=== PATIENT | male | born 1940 | race Caucasian/White ===

== ENCOUNTER 2023-05-25 06:31 | Outpatient (OUT) | payer MEDICARE, OTHER, SELFPAY ==
[2023-05-25 06:58] LABS: Basophils Absolute Auto 0.1 10^3/uL (0.0-0.1); Basophils Percent Auto 1.4 % (0.2-2.0); Eosinophils Absolute Auto 0.3 10^3/uL (0.0-0.7); Eosinophils Percent Auto 5.7 % (0.9-7.0); Hematocrit 44.7 % (42.0-54.0); Hemoglobin 14.3 g/dL (14.0-18.0); Immature Granulocytes Abs Auto 0.01 10^3/uL (0.00-0.03); Immature Granulocytes Pct Auto 0.2 % (0.0-0.5); Lymphocytes Absolute Auto 1.6 10^3/uL (1.2-3.8); Lymphocytes Percent Auto 27.5 % (20.5-60.0); Mean Corpuscular Hemoglobin 29.9 pg (25.9-34.0); Mean Corpuscular Volume 93.5 fL (80.0-94.0); Mean Platelet Volume 10.1 fL (9.5-13.5); Monocytes Absolute Auto 0.6 10^3/uL (0.3-0.8); Monocytes Percent Auto 10.1 % (1.7-12.0); Neutrophils Absolute Auto 3.3 10^3/uL (1.4-6.5); Neutrophils Percent Auto 55.1 % (43.0-75.0); Platelet Count 218 10^3/uL (150-450); Red Blood Count 4.78 10^6/uL (4.70-6.10); Red Cell Distribution Width 13.2 % (11.0-15.0); White Blood Count 5.9 10^3/uL (4.0-11.0)
--- NOTE | 2023-05-25 07:30 | NM_ITS ---
Patient Name: MIKE MONROY MR#: [id number] : 1940 Exam Date: 05/25/2023 Ordering Doctor: DR Paul Woodard . RADIOLOGY REPORT PROCEDURE: NM NIMA PERF SPECT REST STR COMPARISON: None. INDICATIONS: SHORTNESS OF BREATH TECHNIQUE: Exam Description: Stress/Rest two day protocol gated SPECT Rest Imagin.2 mCi Tc-99m Cardiolite IV on 05/26/2023 Stress Imaging 25.8 mCi Tc-99m Cardiolite IV on 05/25/2023 Exercise Protocol: 0.4 mg Lexiscan given IV Heart Rate (bpm): Rest: 65 Max: 87 PMHR: 62 Blood Pressure: Rest: 158/82 Max: 164/76 Symptoms: Rest and peak stress ECG findings were abnormal and the exercise portion of the study was abnormal per attending physician Dr. Lind . For more details please see separate cardiac stress test report. FINDINGS: QUALITY OF STUDY: PERFUSION DEFECT: LOCATION: [place]. SIZE: Small (1-2 segments). SEVERITY: Moderate. TYPE: Persistent. WALL MOTION: Moderate hypokinesis: LV SIZE: Enlarged; EDV 120 mL. TID / TCD: None; 0.9 LVEF: Abnormal. Calculated EF 42%. SUMMARY: Myocardial perfusion imaging study has ABNORMAL findings. CONCLUSION: 1. No reversible ischemia 2. Low left ventricular ejection fraction of 42% 3. Borderline left ventricular dilatation with end-diastolic volume of 120 milliliters 4. Abnormal exercise test Dictated by: Madhav Montoya MD on 05/26/2023 at 15:40 Approved by: Madhav Montoya MD on 05/26/2023 at 15:41
[2023-05-25 08:10] LABS: Alanine Aminotransferase 20 U/L (16-63); Albumin Level 3.6 g/dL (3.4-5.0); Alkaline Phosphatase 75 U/L (46-116); Anion Gap 10.3; Aspartate Amino Transferase 20 U/L (15-37); Bilirubin Direct 0.1 mg/dL (0.0-0.2); Bilirubin Total 0.7 mg/dL (0.2-1.0); Carbon Dioxide 32.6 mmol/L (21.0-32.0); Chloride 105 mmol/L (98-107); Chol HDL Ratio 2.5; Cholesterol 185 mg/dL (<=200); Estimated GFR (African America >60 (>=60); Estimated GFR (Non-African Ame >60 (>=60); Globulin 3.7 g/dL; Glucose 92 mg/dL (74-106); HDL Cholesterol 75 mg/dL (40-60); Potassium 3.9 mmol/L (3.5-5.1); Sodium 144 mmol/L (136-145); Total Protein 7.3 g/dL (6.4-8.2); Triglycerides 52 mg/dL (<=150); VLDL CHOLESTEROL 10.4 mg/dL
[2023-05-25] MEDS: REGADENOSON 0.4 MG/5 ML SYRINGE IV (08:35)
--- NOTE | 2023-05-25 12:35 | PM.STRESS ---
Stress Test Stress Test Requesting physician: Paul Woodard Procedure: Lexiscan Cardiolite stress test General Information: Reason for Stress Test: Dyspnea Cardiac History and Risk Factors: Former smoker. History of CABG x3. Resting 12 - Lead Electrocardiogram: Rate & rhythm: Sinus arrhythmia - variable rate from 59 with bursts up to near 150 [place]: Normal T-waves: Inverted T-waves in aVL ST-segments: Normal Stress Test: Protocol: Hank protocol was initiated, but due to inability to ambulate on the treadmill, the exercise component was unable to achieve target heart rate and therefore canceled.? Testing was changed to Lexiscan protocol, with injection of 0.4mg Lexiscan IV push followed by Cardiolite. Blood pressure: Initial: 158/82, Maximum: 164/76 Rate & rhythm: There were frequent PACs and polymorphic PVCs throughout the study. The maximum heart rate was 87, which was 62% of the maximum predicted heart rate 139. ST-segments & T-waves: After injection of Lexiscan, downsloping was seen in all 3 inferior leads. Patient response/symptoms: There were no symptoms similar to the chief complaint. Interpretation: This is an abnormal stress test based on downsloping of the inferior leads after injection of Lexiscan. Frequent atrial and ventricular ectopic beats, with several runs of SVT noted prior to Lexiscan. Asymptomatic during the test. Cardiolite imaging interpretation will be reported separately. Clinical correlation required.?
== END 2023-05-25 06:32 | disposition home or self-care (01) ==
LOC: LAB 06:32
PROVIDERS: PCP Family Medicine; Visit Provider Family Medicine
DX: R06.02 Shortness of breath (principal); Z79.899 Other long term (current) drug therapy; E78.5 Hyperlipidemia, unspecified
CPT/HCPCS: 36415; 78452; 80048; 80061; 80076; 85025; 93017; A9500; J2785

== ENCOUNTER 2023-05-26 10:39 | Outpatient (OUT) | payer MEDICARE, OTHER, SELFPAY ==
--- NOTE | 2023-05-26 12:13 | CA_ITS ---
Patient Name: MIKE MONROY MR#: [id number] : 1940 Exam Date: 05/26/2023 Ordering Doctor: DR Paul Woodard . ECHOCARDIOGRAM REPORT PROCEDURE: CA ECHO DOPPLER COMPLETE INDICATIONS: Shortness of breath COMPARISON: None. DESCRIPTION: COMPLETE ECHOCARDIOGRAM Real-time transthoracic echocardiography with 2D, M-mode, spectral and color flow Doppler performed. QUALITY: Technical quality was good. LEFT VENTRICLE: Normal chamber size. Normal left ventricular wall thickness. LV EF: Global left ventricular systolic function is normal. Calculated left ventricular ejection fraction is 58% DIASTOLIC: Grade 2, moderate diastolic dysfunction. ATRIAL SEPTUM: Not well visualized. LEFT ATRIUM: Moderate dilatation. RIGHT ATRIUM: Moderate dilatation. RIGHT VENTRICLE: Mild dilatation. Normal right ventricular systolic function. TRICUSPID VALVE: Normal mobility and thickness. Mild regurgitation. Mild pulmonary hypertension. RVSP 44mmHg MITRAL VALVE: Moderately thickened with decreased mobility. Mild mitral valve stenosis. Severe mitral annular calcification. Mild to moderate mitral regurgitation. MVA 1.8cm2, PHT 120ms, Gradient 6mmHg, Mean pressure gradient 1.6mmHg. AORTIC VALVE: Moderately calcified aortic valve. Moderately diminished mobility. Doppler velocity suggests mild to moderate aortic valve stenosis. DVI 0.3, KIANA 1.1cm2, Vmax 2.4m/s, Mean gradient 13mmHg. Mild aortic regurgitation. AORTIC ROOT: Normal diameter and appearance. PULMONIC VALVE: Grossly normal. No stenosis. No regurgitation. PERICARDIUM: No evidence of pericardial effusion. IVC: Moderate dilatation. Measuring 2.4cm. Collapses with inspiration. CONCLUSION: 1. Global left ventricular systolic function is normal; visually estimated ejection fraction is 55 to 60% 2. The right ventricle is mildly dilated with normal systolic function 3. Biatrial enlargement 4. Grade 2, moderate diastolic dysfunction 5. Mild tricuspid regurgitation; mildly elevated right ventricular systolic pressure 6. Mild mitral stenosis; mild to moderate mitral regurgitation 7. Mild to moderate aortic valve stenosis Adult Echocardiography Procedure Report Left Ventricle LVEDD (3.7 - 5.6 cm): 5.14 cm LVESD (2.2 - 4.0 cm): 4.22 cm LVIVS thickness (0.6 - 1.2 cm): 1.10 cm LVPW thickness (0.5 - 1.0 cm): 1.03 cm e': 0.07 m/s E - e': 13.76 LVOT Max Gradient: 2.35 mm[Hg] LVOT Area (cm2): 0.77 m/s Peak Velocity (LVOT): 0.77 m/s Mean Velocity (LVOT): 0.55 m/s LVOT Diameter 1.91 cm Left Ventricular Ejection Fraction: 57.94 % Left Atrium LA Volume Index (2D A2C): 48.18 ml/m2 Left Atrium Systolic Dimension: 3.96 cm Mitral Valve MV E to A Ratio: 0.91, 0.83 Mitral Valve A-Wave Peak Velocity: 1.13 m/s Mitral Valve E-Wave Peak Velocity: 0.98 m/s Right Ventricle RV Internal Diastolic Dimension: 4.60 cm Aorta AO Root Diam: 3.15 cm Aortic Valve AoV Area (Peak Toi): 1.02 cm2, 0.93 cm2 AoV Area (VTI): 1.21 cm2, 1.11 cm2 Deceleration Treasure: 2.04 m/s2 Pressure Half-Time: 559.00 ms Peak Velocity(Antegrade Flow): 2.36 m/s, 2.19 m/s, 1.93 m/s Peak Gradient(Antegrade Flow): 22.30 mm[Hg], 19.23 mm[Hg], 14.97 mm[Hg] Mean Velocity(Antegrade Flow): 1.70 m/s, 1.49 m/s, 1.33 m/s Mean Gradient(Antegrade Flow): 12.72 mm[Hg], 10.29 mm[Hg], 7.86 mm[Hg] Velocity Time Integral: 54.58 cm, 54.47 cm, 42.22 cm Tricuspid Valve Peak Velocity (Regurgitant Flow): 2.73 m/s, 3.00 m/s Pulmonic Valve Mean Gradient: 0.94 mm[Hg], 1.23 mm[Hg] Mean Velocity: 0.47 m/s, 0.51 m/s Peak Velocity: 0.70 m/s Peak Gradient: 1.53 mm[Hg], 2.43 mm[Hg] Right Atrium Right Atrium Systolic Pressure: 100.86 ml, 100.86 ml Dictated by: Heraclio Jha M.D. on 05/27/2023 at 15:42 Approved by: Heraclio Jha M.D. on 05/27/2023 at 15:48
== END 2023-05-26 10:40 | disposition home or self-care (01) ==
LOC: NM 10:39
PROVIDERS: PCP Family Medicine; Visit Provider Family Medicine
DX: R06.02 Shortness of breath (principal); I08.3 Combined rheumatic disorders of mitral, aortic and tricuspid valves
CPT/HCPCS: 93306

== ENCOUNTER 2023-07-09 13:30 | Emergency (ER) | payer MEDICARE, OTHER, SELFPAY ==
[2023-07-09] VITALS (55 sets, daily range): BP systolic 97–155; BP diastolic 57–110; PULSE 101–148; RESP 18–27; TEMP 36.8; O2SAT 96–98; BMI 22.3
--- NOTE | 2023-07-09 | CT_ITS ---
The [address] [address] Patient Name: MIKE MONROY MRN: [id number] date: 1940 Sex: M Assigned Patient Location: ER Current Patient Location: ED.MAIN Accession/Order Number: [id number] Exam Date: 07/09/2023 13:38 Report Date: 07/09/2023 14:14 At the request of: STEVE URBINA Procedure: CT stroke head/brain wo con CT BRAIN WITHOUT CONTRAST HISTORY: Stroke protocol. COMPARISON: None. TECHNIQUE: Axial CT images were acquired from the skull base to the vertex without the use of intravenous contrast. Dose reduction techniques were achieved by using automated exposure control and/or adjustment of mA and/or kV according to patient size and/or use of iterative reconstruction technique FINDINGS: There are periventricular white matter hypodensities. There is no evidence for intracranial hemorrhage, mass effect, or hydrocephalus. No extraaxial collection or midline shift is identified. The visualized paranasal sinuses are unopacified. CT/CT stroke head/brain wo con IMPRESSION: 1. No acute brain pathology. 2. Periventricular white matter hypodensities, likely the sequela of chronic small vessel ischemia. CRITICAL RESULTS REPORTING: These results were called by myself and discussed with Steve Urbina at the time of the interpretation 07/09/2023 2:13 PM EST. Electronically authenticated by: ISADORA YARBROUGH Date: 07/09/2023 14:14
--- NOTE | 2023-07-09 13:35 | ECG_ITS ---
[facility] Test Date: 2023-07-09 Pat Name: MIKE MONROY Department: Room: - Gender: Male [employer]: : 1940 Requested By: [id number] Order Number: [id number] Reading MD: FRANCES HOPKINS Measurements Intervals [place] Rate: 141 P: -[id number] AR: -[id number] QRS: 79 QRSD: 90 T: 270 QT: 298 QTc: 380 Interpretive Statements 99606 Atrial fibrillation with rapid ventricular response with aberrant conduction, or ventricular premature complexes [id number] depression, probably digitalis effect [address] & Twave abnormality, probably digitalis effect 9150 abnormal ECG Electronically Signed On 07-11-2023 17:31:06 EST by FRANCES HOPKINS
--- OUTSIDE RECORDS SUMMARY | 2023-07-09 13:46 | XMS_ITS | CCD ---
Author Name Unknown Address [address] [place] [address] Organization [facility] Care Team Providers Care Enterprise Analyst Name Role Phone LONDON BLAND Unavailable Unavailable PAUL ESQUEDA Unavailable Unavailphilipp e Shayne ZAMBRANO Unavailable Unavailable Shayne ZAMBRANO Unavailable Unavailable London Bland Attending Unavailable Paul Esqueda Primary Care Unavailable YIN, DR PAUL Jauregui Attending Unavailable YIN, DR PAUL Jauregui Consulting Unavailable YIN, DR PAUL Jauregui Primary Care Unavailable DR PAUL ESQUEDA Admitting Unavailable Paul Esqueda MD Primary Care Provider PONCHO ROJO Attending Unavailable PAUL ESQUEDA Primary Care Unavailphilipp e Medications Current Medications Medication Drug Class(es) Dates Sig (Normalized) Sig (Original) aspirin 81 mg delayed release oral tablet (1 source) Platelet Aggregation Inhibitor, Nonsteroidal Anti-inflammatory Drug Start: 12-26-2017 take 1 tablet by mouth once daily aspirin 81 mg EC tablet Take 1 tablet (81 mg) by mouth once daily. 0 12/26/2017 Active atorvastatin 40 mg oral tablet (1 source) HMG-CoA Reductase Inhibitor take 1 tablet by mouth once daily at bedtime atorvastatin (Lipitor) 40 mg tablet Take 1 tablet (40 mg) by mouth once daily at bedtime. 0 Active losartan potassium 25 mg oral tablet (1 source) Angiotensin 2 Receptor Vidal Start: 06-15-2023 End: 06-14-2024 take 1 tablet by mouth once daily losartan (Cozaar) 25 mg tablet Indications: S/P coronary artery bypass graft x 3 , Mixed hyperlipidemia Take 1 tablet (25 mg) by mouth once daily. 30 tablet 11 06/15/2023 06/14/2024 Active Problems Active Problems Problem Classification Problem Date Documented Date Episodic/Chronic Cardiac dysrhythmias (1 source) Cardiac dysrhythmias Onset: 01-18-2018 Chronic kidney disease (2 sources) Chronic kidney disease Onset: 01-18-2018 Chronic obstructive pulmonary disease and bronchiectasis (2 sources) Chronic obstructive lung disease; Translations: [Chronic obstructive pulmonary disease, unspecified] Onset: 06-15-2023 06-15-2023 Chronic Chronic obstructive pulmonary disease and bronchiectasis (1 source) Chronic obstructive pulmonary disease and bronchiectasis Onset: 01-18-2018 Coronary atherosclerosis and other heart disease (5 sources) Atherosclerotic heart disease of [place] coronary artery without angina pectoris; Translations: [Multi vessel coronary artery disease] Onset: 01-18-2018 06-15-2023 Chronic Coronary atherosclerosis and other heart disease (2 sources) Presence of aortocoronary bypass graft; Translations: [Presence of aortocoronary bypass graft] Onset: 06-15-2023 Episodic Coronary atherosclerosis and other heart disease (1 source) Coronary atherosclerosis and other heart disease Onset: 01-18-2018 Disorders of lipid metabolism (5 sources) Hyperlipidemia, unspecified; Translations: [Mixed hyperlipidemia] Onset: 10-29-2020 06-15-2023 Chronic Essential hypertension (4 sources) Essential (primary) hypertension; Translations: [ESSENTIAL PRIMARY HYPERTENSION] Onset: 10-21-2020 Chronic Heart valve disorders (4 sources) Aortic stenosis, non-rheumatic ; Translations: [Nonrheumatic aortic (valve) stenosis] Onset: 06-15-2023 06-15-2023 Chronic Other aftercare (1 source) Other fdc (current) drug therapy; Translations: [OTH NUT FEEDER CURRENT DRUG THERAPY] Onset: 10-29-2020 Episodic Other aftercare (1 source) Treatment changed; Translations: [Other terminal clerk (current) drug therapy] Onset: 06-15-2023 06-15-2023 Episodic Other lower respiratory disease (2 sources) Dyspnea; Translations: [Shortness of breath] Onset: 06-15-2023 06-15-2023 Episodic Other screening for suspected conditions (not mental disorders or infectious disease) (5 sources) Encounter for screening for malignant neoplasm of prostate; Translations: [Cardiovascular stress test abnormal] Onset: 10-29-2020 06-15-2023 Episodic Pulmonary heart disease (2 sources) Pulmonary hypertension, unspecified; Translations: [Other chronic pulmonary heart diseases] Onset: 06-15-2023 06-15-2023 Chronic Residual codes; unclassified (2 sources) Body mass index 20-24 - normal; Translations: [Body mass index (BMI) 21.0-21.9, adult] Onset: 06-15-2023 06-15-2023 Episodic Screening and history of mental health and substance abuse codes (2 sources) Ex-smoker; Translations: [Personal history of nicotine dependence] Onset: 06-15-2023 06-15-2023 Episodic Unclassified (2 sources) Athscl heart disease of [place] coronary artery w/o ang pctrs / I25.10(ICD-9) Onset: 01-18-2018 Unclassified (1 source) Other nonrheumatic aortic valve disorders / I35.8(ICD-9) Onset: 01-18-2018 Unclassified (1 source) Other nonrheumatic mitral valve disorders / I34.8(ICD-9) Onset: 01-18-2018 Unclassified (1 source) Overweight / E66.3(ICD-9) Onset: 01-18-2018 Unclassified (1 source) Presence of aortocoronary bypass graft / Z95.1(ICD-9) Onset: 01-18-2018 Unclassified (1 source) Personal history of nicotine dependence / Z87.891(ICD-9) Onset: 01-18-2018 Unclassified (1 source) Unknown / UNK(Unknown) Onset: 03-08-2018 Past or Other Problems Problem Classification Problem Date Documented Da te Episodic/Chronic Unclassified (1 source) Onset: 06-15-2023 06-15-2023 Results Test Name Value Interpretation Reference Range Facility ECG 12 Leadon 06-15-2023 Normal sinus rhythm with inferior ST-T changes [facility] Work Phone: [facility] Work Phone: Coding Summary.on 01-05-2022 Coding Summary. CD:[id number] Gh0b Ww+PGhlYWQ+YO0LZXLpO42tg UZokQ9MY8uPTL3JMNFAZQDAN H1UQX8lnQE7SCmuD1OvedZp VevpjVCnUQ88PXx6QGD6eIqm TXrrbF6geDLhL4k8ApXaFY52 aC06YQfeNVSzHcE7GkTncxav bWFy A7oyRlCrmNEzWws+PHRhYmxl IHdpZHRoPScxMDAlJyBzdHls DH1hKd3pOXTrMCIeiLkpoCEr OiBj k3amQNKlTZaxVO2usThdO9Lj yTN9WRRkm4q8Fo27uTD+PHRk TBD0dFunNJgng282YmCjp2kh IDM3 xOEvYKjzCFX3H75od2M6VYSa QIWrZAL7dKX2yY1dkHwktwgn W3FeeNOpLbX6UOX1tHTftE1i bGln kmnhgY9uFad+A89XHK6CAJGS PN1ZCng4P2ErUuvkoOZ+PC90 WHAmDN82lDMneEVdg1atsVz3 JzEw UZFgPFL9bXdbDItki3VkPJSn E17kdKSgp9O6WFXuxPqzxIIk JpApfKA1xF0zQAfcfbvda8ir dzsn Jfwxe3dmui87qM97U20wYUed XHVkRXT0RXOmVALunMqdic8u dF7kBa0+FYsem6gvr6eqvBr6 IjIw GAPmknSckDilHYJ4d9PxLn21 J7QzxQfsq0UjVxv7vr57iRNu u7U2gKX1UTtcDMFptH5pRCrs ZnQ6 IQVdJeAbyW84uBAeCVttLz4x eFjljFlvBX7mRBSenkuoAOZd kP0bSWKqsOFcvYepUO5sOSPb bjtm a777TeKqTVB4OHSpoPWcI3Qk vX4tQbMrNBZcSKAuF6OrmJIv OIyfF376EIvlZpH7RUArtpNx Y2Fs TAAusMgwKxI2m7I0Ew7Di3Wo bkdxZEQ1UJzyUDI9CtN8YoWc FfM7G0BfPqz6HVQkuJehGV3j J3Bh GKOysejqenjvrHZ2NDVlPJMk lR03tTLlQYxdGs2xe6I9k195 NAYbQPSvdS42Rj4gcCduZVBv dCBU jI8avsxya1quovbtYrDnYTBy GRx4JUf9MIMhpXjiPyXqIGL4 HiA2HBM4pMVweO4xoCzxdpaf dG9w Oyc+A51upG4fWXO9CIN9skox HDFvkbYnEV50AF94K4MeNzso dGFibGU+EDLtqfXmyLtfOQ3x YmFj n7drj2AzHSymH8CnDPNbDYpd Zsm7RHWjPWQ1aBZ2xV4vBROu UUrcm8X3wAH7Z7GbkmDpzp5x b2xs IZCyKPvhF85bzELbw0T7HEDi gSL8AGTjyFsdAmWyoZ69Fmf+ MKWvoZtjq5BqPabmr3pls3lq dGg9 OhEeODDtolLriXkaDJW2w5Da Eo25F12iXPplNKUwGNTqTFRt YTBivWpjye3qsR8vHs3+PGNv bCB3 dOZ0lU7rQWFfItD2WQdlP078 JsAckXXaZyzhp4cgj3iteTt8 LfVzGHNuaoRuqEhgFSM8m6Gi Lz48 J00fRKnvZHOfDDEjZNFaEJPv fVysmf1lfG9sVh1+TS9gp9ao oh91fY17oWD+JIBjGZI5iMbo PSdw TBKouQ8fSQpzZbO2FXZkWhZv aM48dHUsZArmXy3itUvrtRyi LA2jRREsbsepr913LqMmg5zn IDEw gJZrRByrAAT7P28yd8C5NDPl XVScKLO4hVP3kO3szVeqnzvn bGVmdDsgdmVydGljYWwtYWxp Z246 IHRvcDsnPlBhdGllbnQgTmFt BUk0N4TiFuc3LTFcwIfsDQ7g aNZaUCzpBb8teXmfpExpGT7w NTBp gqsrp068LiUid2tcHTVybNBq TRdiKPB4R65yv9V1IWFpSQLg NIR6sKG6pC4qaSsibdgkbGUg dDsg xqJssIkhDEkgYPysN014SLDi hIjdLyHgmeIbLXXqeVO8WZ50 IW10nYHqk2M6hSB2E3TgEASb bmct dvmqvFN7VFOnKOPoyZ75Qe6v nCzaTi0lXDHdJOY9HXBlhZTl Y9KsqF6vKmPzSGFzMSUuW7Xg eHQt AIlcM589TFngJnM5QGKqyrZt Y5TuGULdyDufNtJ5w4Q3Ju3L C4L1WX46DO80rSRiz4H1uFD7 J3Bh ZRElpebxmpbvjDE6CLPkOXGg aG68Hb5etLgiKg8uRYYuAQX7 GGOmvLDpP6XzsZ0aBiFhHFEo MDAw M1IzzTDoPLdpQ433LGjpUuQ2 FWKajvXmD2PpDUVctSakCtA1 q9S8Vj0KADm9CN80GE29gOLv c3R5 gHA7A8ShMJCdogldjkzoqQP0 LORsSGLpnC93Nn2xgVniPf7l YLIuVGX8JWXwhYYvA5BocQ4j OiAj CZQeXPZjA7LjuFWvQVeqY515 HHrbCgZ2IVHdxlQyO8OtSJKt lTkgNyP5t2J5Yp9WTCSpNU89 IFR5 xGF7GQ57SH59Z4AuMwmloEVf bGU+PHRhYmxlIHdpZHRoPScx NOYsBeBlwVopDZ6lTd6zUZIw LWNv jRnwgPSdHcWui5rdNEIjVLsn SZ7tnProZ4YajDF6OCVmf6x3 Bl29M25gE8UgzSQ+PGNvbCB3 aWR0 oL2iHwEfPpG9SKcmE079QtJn oPOzYsfex1far1jzeTp6XsE9 KLXkpjJjeOkyDDY1r3TdBj72 Y29s IHdpZHRoPSIxNSUiIHZhbGln gu2riV8hGh3+NNYktYR4jSV9 uU6eUeUgUvX3EPgfV544JoTb cCIv Xigxm4qvb9iyoZe0StJiYJSp zhZhkKyhONS7s6MsIz28Z1Is xDggw4LsUjt8bc70wKEcy8M1 bGU9 T2FmQIBlqfveyUAqsCluCK3v MCTjdxxjKPStgW9bDBRmX2s1 NsYmUvF2JYllM8BdsjH0DDCu cHQg JIsjGZQ9D67wg2T3AEQuUJUc OFR6gCH4oI5zhGujwdyatVLl iLskbkOprDejWDjsEDiiJ244 IHRv tGphLSIewE6bNGOhgYQqlPfo LF9hLNJgrdwqMy0EGKwZVgds SkFNRVMgTDwvdGQ+PHRkIHN0 eWxl UJssXSRarZ6iTUYoX4e2EdEw BfR4SLruU2WvCRTdflsyRj38 gV5rMxHoVnI2UCvzL7IoprV7 IDEw iUPuMPfgOCP2R36ij2Z4SNEa OYIwKKP5gUK4zT1xkYidwfqt bGVmdDsgdmVydGljYWwtYWxp Z246 JGKbgVrgUxW1PwJ4KrN9ELW1 T8IrEps0KEIomIhiMB4mgWPb WFyrTw7iqHdliJamCR1yACEf bjtw RYSohL5tXCSfgIAuwXxuTY7p DQSdtcomb478WkCsDLD3UNKo sHElD4DhcK2xWmLvRKCcPXWa O3Rl kBPkLAscX711JBrpPyT8SFIf ckBuO8XpDIDzeEpcPeX5h5A5 Fn57LTGAAKAfgbgjrLQ+PHRk IHN0 xNljQTxyQLUfdN9fRPXkN8w6 YrBwShQ4OJnvB3SvMRDlwrha Vk48gY0tGqGjUwB1SQmdR3La bnQ6 JOGsoTJbPWorMDW1P54yp5M2 EFXbPKJmKZC5yIB5dA8wnPoc bjogbGVmdDsgdmVydGljYWwt YWxp K638VEGblSwvYh0riIR5P4Ib Pnu2KYRgmCipGN8yyWWuWTnm Fa8itLxdhOejBW1vHMJyqqgz YWRk vC7qGVEecIBsySabXA6bZSRh merai964JuIqXBQ6QWUszPHb C3UfzO7eFlCnLQVyAJKqH8Qi eHQt MTumL572RKeiHgI3WSGyjuQq Z0DwOUIjxSvrYrG2r6Z0Yl5Y qDMpZ5XoQ6e5D3DyOykinHC+ PC90 NBRlWT43eZTecRUkz8ztvUg8 GuVtNJKlYLJ3iTrsURdyb3Ey EBKcV81vmHEfs2T7HHHlgLrb cHNl TqLvtGA7jV1zDPyasbzxj6fr jokcVpecg3clei61mV26M20v IHdpZHRoPSIzMCUiIHZhbGln bj0i mM9wXo0+PRDgaLJ3cFM6kO6f NmWeTqH0IWwlC229NqWwcQVq Ihazb8kto6xrhRx9WuArAOFv dmFs uSeeTCI8c2WfEz58I69eXKan QPTnNAFpVIKuIZNfoTyopg7s dB3cHg1+KH1qx4bapw26jM13 dHI+ FSFaSDD0cTfiTYrmNSCoqO2k NSijRmK2RQRkFfQzpE74cJYf JEwnFp2ahMgjuStvNB5oCIQw bjtm i062FuHxc0yrAASxwFBkFXrb LBY0C39kl8X9ZIAbPZLeLOY4 nQL9qS7vxFnmwogxuOKbbMvp dmVy eYnfEGohAZbuT843OHDxsZwr EbPreSShY8ltplRLRC1kXuht dGQ+UMHpWHT5tKrsFPpqXTAi aW5n SAJdV4k1OrHpUmK3DDfpH2Ea naV3NYMhbDLsMCTfpFHGtV1j hdinp5ifvuyeMcDbIJZuTUt5 ZXh0 ATNiePcgUnJwZTF9HfG1CSA9 pRObvT0kqQgfefcmyO9uIqm+ RklOOjwvdGQ+VMHeSHI1dIvg PSdw YGBjbH5zUKPqB8k3AbBcQkE3 CInpX3CakjZ9LKSgaSSaDGFd xGIPdF9zbtzwc3byukouLyIp MDAw GOf5IVz7VYTzeQzoOxDgMID6 OdD4WHH1bWPuaK6jmCxgtmfq pU3tYot+TVJOOjwvdGQ+PHRk IHN0 mMsdICvuMDEyuD4vHIUsU2t8 FlPfQgY4SWmyI4ObetR1HTVp gYSpRDExfYCXoJ6frdtpa8yb cjog XyDgLULhRLk0KGe1CMNpiSml BhQpCWL5SeM8SEA5lVNurM7j nCpxwiffgZ9aNkx+KNO3TNG5 PC90 MS03B3ZjChiadJZocCM+PHRh YmxlIHdpZHRoPScxMDAlJyBz bYmkBC0uCr4lCQZfHTLhiJsi cHNl OiBj (more content not included)... Normal [facility] Transfer Documentson 022 Transfer Documents [id number] Normal [facility] XR Chest Single Viewon 12-29 XR Chest Single View Exam Date/Time: 12/28/2021 17:48 EDT Reason for Exam: Chest pain Report IMPRESSION: NO ACTIVE PULMONARY DISEASE. CLINICAL HISTORY: Chest pain possible stroke COMPARISON: NONE. FINDINGS: AP upright portable chest shows normal-sized heart and evidence of coronary artery bypass surgery. There is no pneumonic infiltrates or consolidation. FINAL REPORT Dictated: 12/29/2021 6:45 am Jori Robbins M.D. Signed (Electronic Signature): 12/29/2021 6:45 am Signed by: Jori Robbins M.D. Transcribed by: FADI Technologist: BRYON Normal [facility] Auto Diffon 12-28-2021 Basophils/100 WBC (Bld) 0.8 % Normal 0.0-2.0 [facility] Comment on above: Order Comment: Order Added by Discern Expert. Performed By: #### 2 452458, 6618036, 45416087, 67438364, 05374178, 5139510, 4218956, 61669872 ####[facility] [address] [place] [address] Basophils/Leukocyt es Auto (Bld) [Pure # fraction] 0.1 E9/L Normal 0.0-0.2 [facility] Comment on above: Order Comment: Order Added by Discern Expert. Performed By: #### 2 911953, 0693916, 52844883, 35013838, 68457535, 1917147, 9474803, 91823796 ####[facility] [address] [place] [address] Eosinophils/100 WBC (Bld) 4.3 % Normal 0.0-8.0 [facility] Comment on above: Order Comment: Order Added by Discern Expert. Performed By: #### 2 448189, 8242785, 68471426, 76016265, 84011133, 6855963, 5861057, 56791674 ####[facility] [address] [place] [address] Eosinophils/Leukoc ytes Auto (Bld) [Pure # fraction] 0.3 E9/L Normal 0.0-0.5 [facility] Comment on above: Order Comment: Order Added by Discern Expert. Performed By: #### 2 673539, 9148632, 15699205, 16834776, 59378756, 7362819, 1113300, 83592445 ####[address] [place] [address] Lymphocytes/100 WBC (Bld) 22.2 % Normal 14.0-50.0 [facility] Comment on above: Order Comment: Order Added by Discern Expert. Performed By: #### 2 685795, 1875824, 98560759, 26196879, 03452795, 4623704, 4188084, 52253130 ####[address] [place] [address] Lymphocytes/Leukoc ytes Auto (Bld) [Pure # fraction] 1.3 E9/L Normal 1.0-4.0 [facility] Comment on above: Order Comment: Order Added by Discern Expert. Performed By: #### 2 716906, 9734453, 50908296, 26740885, 18498208, 4822226, 7072723, 38738279 ####[facility] [address] [place] [address] Monocytes/100 WBC (Bld) 8.6 % Normal 4.0-14.0 [facility] Comment on above: Order Comment: Order Added by Discern Expert. Performed By: #### 2 201825, 5186907, 40215887, 50577085, 80594940, 6244588, 3254523, 23628008 ####[address] [place] [address] Monocytes/Leukocyt es Auto (Bld) [Pure # fraction] 0.5 E9/L Normal 0.2-1.0 [facility] Comment on above: Order Comment: Order Added by Discern Expert. Performed By: #### 2 348917, 9733793, 10631093, 10717095, 47757107, 7140985, 6999293, 28462679 ####[facility] [address] [place] [address] Neutrophils/100 WBC (Bld) 64.1 % Normal 36.0-75.0 [facility] Comment on above: Order Comment: Order Added by Discern Expert. Performed By: #### 2 876332, 4269520, 02150629, 06289391, 09498428, 5664255, 9877237, 32162182 ####[address] [place] [address] Neutrophils/Leukoc ytes Auto (Bld) [Pure # fraction] 3.9 E9/L Normal 2.0-7.5 [facility] Comment on above: Order Comment: Order Added by Discern Expert. Performed By: #### 2 775989, 8905810, 35499728, 23095695, 56910825, 5502279, 9940641, 23456316 ####[address] [place] [address] BMPon 12-28-2021 Calcium [Mass/Vol] 9.3 mg/dL Normal 8.9-11.1 [facility] Comment on above: Performed By: #### 2 132466, 1011477, 01007740, 49346069, 62898380, 4710678, 7889626, 06432240 ####[address] [place] [address] Creatinine [Mass/Vol] 0.8 mg/dL Normal 0.5-1.3 [facility] Comment on above: Performed By: #### 2 293075, 7210111, 19110892, 70178734, 19535667, 0742551, 3217148, 55331263 ####[facility] [address] [place] [address] Urea nitrogen [Mass/Vol] 24 mg/dL High 5-21 [facility] Comment on above: Performed By: #### 2 358217, 6559913, 29354024, 73050297, 08600280, 2244690, 7342451, 36971395 ####[facility] [address] [place] [address] Urea nitrogen/Creatinin e [Mass ratio] 30 No Units High 10-20 [facility] Comment on above: Performed By: #### 2 151153, 5089746, 95757906, 73302391, 21288277, 1588298, 9665183, 83890826 ####[facility] [address] [place] [address] Anion gap [Moles/Vol] 9 mmol/L Normal 6-16 [facility] Comment on above: Performed By: #### 2 439443, 1639090, 75116897, 62680831, 21433372, 6565964, 8638750, 74570883 ####[facility] [address] [place] [address] Chloride [Moles/Vol] 103 mmol/L Normal 101-111 [facility] Comment on above: Performed By: #### 2 134466, 9447612, 31635548, 07862308, 90827383, 1819230, 4473110, 73766380 ####[facility] [address] [place] [address] CO2 [Moles/Vol] 28 mmol/L Normal 21-31 [facility] Comment on above: Performed By: #### 2 715435, 6440381, 58605910, 03646571, 00676297, 0977233, 6483339, 59075087 ####[facility] [address] [place] [address] Glucose [Mass/Vol] 103 mg/dL Normal 55-199 [facility] Comment on above: Result Comment: If t his glucose result represents a fasting glucose, interpretation should refer to the following reference range: 55-99 mg/dL Performed By: #### 2 435482, 5514590, 70077202, 31947258, 32254657, 0765959, 7582301, 11740803 ####[facility] [address] [place] [address] Potassium [Moles/Vol] 4.1 mmol/L Normal 3.5-5.3 [facility] Comment on above: Performed By: #### 2 742339, 5118002, 76417048, 83973420, 91723797, 4266876, 4797584, 68210808 ####[facility] [address] [place] [address] Sodium [Moles/Vol] 136 mmol/L Normal 135-145 [facility] Comment on above: Performed By: #### 2 964110, 7861670, 46413244, 50607094, 08230059, 4000984, 5219983, 26210185 ####[facility] [address] [place] [address] CBC w/ Auto Diffon 2 Erythrocyte distribution width (RBC) [Ratio] 14.2 % Normal 10.9-14.2 [facility] Comment on above: Performed By: #### 2 228936, 2214655, 41141468, 14727024, 91755765, 2410494, 3488122, 02596886 ####[facility] [address] [place] [address] Hematocrit (Bld) [Volume fraction] 40.2 % Normal 37.7-49.0 [facility] Comment on above: Performed By: #### 2 283296, 1697338, 40212003, 55679516, 01665175, 9035872, 7274125, 13779734 ####[facility] [address] [place] [address] Hemoglobin (Bld) [Mass/Vol] 13.9 g/dL Normal 13.5-17.5 [facility] Comment on above: Performed By: #### 2 872633, 0944509, 26553726, 75916084, 13583134, 8970139, 8854408, 81624736 ####[address] [place] [address] MCH (RBC) [Entitic mass] 31.2 pg Normal 27.0-34.0 [facility] Comment on above: Performed By: #### 2 534125, 1363137, 24758046, 34364328, 60166756, 4967273, 5279564, 40213538 ####[address] [place] [address] MCHC (RBC) [Mass/Vol] 34.5 g/dL Normal 31.4-36.0 [facility] Comment on above: Performed By: #### 2 043293, 6828788, 96127413, 19306295, 62677441, 4648798, 9837003, 36150420 ####[address] [address] MCV (RBC) [Entitic vol] 90.4 fL Normal 80.0-100.0 [facility] Comment on above: Performed By: #### 2 963065, 2104058, 44029043, 94588671, 29969384, 6961547, 8198799, 18120253 ####[address] [address] Platelet mean volume (Bld) [Entitic vol] 7.7 fL Normal 6.4-10.8 [facility] Comment on above: Performed By: #### 2 566243, 3102751, 43991104, 91653748, 14016660, 1192187, 9930242, 07217898 ####[address] [address] Platelets (Bld) [#/Vol] 264.0 E9/L Normal 150.0-500.0 [facility] Comment on above: Performed By: #### 2 463082, 8073598, 69748537, 58800965, 38933136, 6794958, 6133505, 89582160 ####[facility] [address] [place] [address] RBC (Bld) [#/Vol] 4.4 E12/L Normal 4.3-5.9 [facility] Comment on above: Performed By: #### 2 715563, 7714856, 59821459, 33264009, 47054145, 4719893, 3820264, 02338668 ####[facility] [address] [place] [address] WBC corrected for nucl RBC Auto (Bld) [#/Vol] 6.1 E9/L Normal 4.0-11.0 [facility] Comment on above: Performed By: #### 2 [id number], [id number], [id number], [id number], [id number], [id number], [id number], [id number] ####[facility] [address] [place] [address] CRPon 12-28-2021 CRP [Mass/Vol] 0.7 mg/dL Normal <=1.9 [facility] Comment on above: Performed By: #### 2 [id number], [id number], [id number], [id number], [id number], [id number], [id number], [id number] ####[facility] [address] [place] [address] CT Head or Brain w/o Contras ton 12-28-2021 CT Head or Brain w/o Contrast Exam Date/Time: 12/28/2021 17:05 EDT Reason for Exam: Transient ischemic attack (TIA) Report IMPRESSION: No acute intracranial process. COMMUNICATION: Communicated by statrad radiologist Dr. Zuniga with: Dr. Riley on 12/28/2021 at 1724. EXAMINATION: CT Head or Brain w/o Contrast HISTORY: Transient ischemic attack (TIA). Vision loss in right eye. Rapid response stroke. TECHNIQUE: Serial axial images without IV contrast were obtained from the vertex to the foramen magnum, with sagittal and coronal reconstructions. All CT scans at this facility use dose modulation, iterative reconstruction, and/or weight based dosing when appropriate to reduce radiation dose to as low as reasonably achievable. COMPARISON: None. RESULT: Acute change: No evidence of an acute infarct or other acute parenchymal process. Hemorrhage: No evidence of acute intracranial hemorrhage. Mass Lesion / Mass Effect: There is no evidence of an intracranial mass or extraaxial fluid collection. No significant mass effect. Chronic change: Scattered patchy foci of low attenuation are present within supratentorial white matter which is a nonspecific finding but likely represents mild microvascular ischemia. Extensive vascular calcifications Parenchyma: Mild to moderate generalized volume loss. The brain parenchyma is otherwise within normal limits for age. Ventricles: Ventricular enlargement concordant with the degree of parenchymal volume loss. Paranasal sinuses and skull base: Diffuse mucosal thickening within the paranasal sinuses, especially of the ethmoid air cells. Mastoid air cells clear. The skull Report base is unremarkable. Soft tissues unremarkable. FINAL REPORT Dictated: 12/28/2021 6:35 pm Bryon Collins MD. Signed (Electronic Signature): 12/28/2021 6:35 pm Signed by: Bryon Collins MD Transcribed by: FADI Technologist: CARYN Technical Comments Contrast: None Normal [facility] CTA Headon 12-28-2021 CTA Head Exam Date/Time: 12/28/2021 17:35 EDT Reason for Exam: Cerebral hemorrhage suspected;Other (please specify) Report IMPRESSION: Extensive atherosclerotic disease involving the carotid bifurcations bilaterally without evidence for high-grade stenosis. The proximal vertebral arteries are not well opacified bilaterally with reconstitution of flow as discussed and with small caliber. Possible occlusion versus variant anatomy involving the distal left vertebral artery. These findings are age indeterminate as there are no priors to compare. Mild to moderate stenosis involving the left M1 segment, without complete occlusion. EXAMINATION: CTA Head HISTORY: Cerebral hemorrhage suspected rapid response stroke. Loss of vision in the right eye. Recent fall. TECHNIQUE: Spiral high resolution axial images were obtained through the head, neck and superior mediastinum following bolus administration of intravenous contrast for CT angiography. The data was subsequently post-processed utilizing 3D multi-planar reconstructions, 3D maximum intensity projections. Contrast: iopamidol (ISOVUE-370) injection of [address] scans at this facility use dose modulation, iterative reconstruction, and/or weight based dosing when appropriate to reduce radiation dose to as low as reasonably achievable. COMPARISON: CT head 12/28/2021. RESULT: BRAIN: No significant change from the recent CT head dictation. NECK: Soft tissues: The soft tissue planes are maintained throughout. No evidence of a soft tissue mass in the neck or superior mediastinum. No significant lymphadenopathy is seen. Spine: Multilevel degenerative changes. Straightening of the cervical lordosis. Report Lung apices: Biapical pleural-parenchymal thickening/scarring. Median sternotomy. CT ARTERIOGRAM: Extracranial Circulation: Aortic Arch: Normal branching pattern.. There is no significant stenosis in the proximal brachiocephalic vessels. Carotid Stenosis: Right Common: No significant stenosis. Right Internal Carotid Plaque: Moderate to severe calcifications at the bifurcation and near terminus. Right Internal Carotid Stenosis (% by NASCET Criteria): Less than 50% Left Common: No significant stenosis. Left Internal Carotid Plaque: Moderate to severe calcifications at the bifurcation and near terminus. Left Internal Carotid Stenosis (% by NASCET Criteria): Less than 50% Cervical Vertebral Arteries: Both appear small in caliber. The proximal left vertebral artery is not opacified with opacification within the foraminal segment and more distally. Tortuosity and stenosis with possible occlusion near terminus versus termination in left PICA. Tortuosity of the right vertebral artery with calcifications. The right vertebral artery is not well opacified near terminus with opacification in the foraminal segment and more distally. Intracranial Circulation: Anterior Circulation: Calcifications of the distal ICAs without high-grade stenosis. Proximal ACAs appear patent. Mild to moderate stenosis involving the left M1 segment. Otherwise proximal MCAs appear patent . Vertebrobasilar Circulation: Vertebral artery findings as above. Tortuosity of the basilar artery which is small in caliber. Proximal access services representative appear patent. Dural venous sinuses: Visualized dural venous sinuses are patent. FINAL REPORT Dictated: 12/28/2021 6:00 pm Bryon Collins MD. Signed (Electronic Signature): 12/28/2021 6:00 pm Signed by: Bryon Collins MD Transcribed by: FADI Technologist: CARYN Technical Comments GFR (mL/min/1/73m2) stroke protocol Contrast: Isovue 370 Contrast amount in ml's: 100 Normal [facility] CTA Neckon 12-28-2021 CTA Neck Exam Date/Time: 12/28/2021 17:35 EDT Reason for Exam: Stroke, follow up;Other (please specify) Report Refer to concurrent CTA head dictation. All CT scans at this facility use dose modulation, iterative reconstruction, and/or weight based dosing when appropriate to reduce radiation dose to as low as reasonably achievable. FINAL REPORT Dictated: 12/28/2021 6:00 pm Bryon Collins MD Signed (Electronic Signature): 12/28/2021 6:00 pm Signed by: Bryon Collins MD Transcribed by: FADI Technologist: CARYN Technical Comments GFR (mL/min/1/73m2) stroke protocol Contrast: Isovue 370 Contrast amount in ml's: 100 Normal [facility] Capillary Glucose POCon 12-10 Glucose [Mass/Vol] 89 mg/dL Normal 55-99 [facility] Comment on above: Result Comment: Mina new RN/ Performed By: #### 2 [id number] #### [facility] [address] [place] [address] Consent for Treatmenton 12-10 Consent for Treatment [id number]: 127 Normal [facility] ED Clinical Summaryon 2021 ED Clinical Summary [address] [address] ED Clinical Summary Person Information Name: MIKE MATHEW/[facility] Age: 81 Years : 1940 Sex: Male Language: Czech PCP: PAUL ESQUEDA MD Marital Status: Visit Id: Visit Reason: Potential stroke; Vision changes; VISION CHANGE Speciality: Acuity: 2 Enc Type: Emergency Med Service: Emergency Arrival: 12/28/2021 16:51:11 Discharge: 12/28/2021 19:55:41 LOS: 000 03:04 Checkin: 12/28/2021 16:51:11 Checkout: 12/28/2021 19:55:41 Dispo Type: Short-Term Hosp as IP EVENTS: Event Name Event Status Request Date/Time Start Date/Time Complete Date/Time Arrive Complete 12/28/2021 16:51:11 12/28/2021 16:51:11 12/28/2021 16:51:11 Document Home Meds Request 12/28/2021 16:51:11 Triage Complete 12/28/2021 16:51:11 12/28/2021 16:59:46 12/28/2021 16:59:46 Bed Assign Complete 12/28/2021 16:54:36 12/28/2021 16:54:36 12/28/2021 16:54:36 Dr Exam Complete 12/28/2021 16:54:36 12/28/2021 16:54:59 12/28/2021 16:54:59 RN Exam Complete 12/28/2021 16:54:36 12/28/2021 17:17:23 12/28/2021 17:17:23 Registration Complete 12/28/2021 16:54:59 12/28/2021 17:14:25 12/28/2021 17:14:25 EKG Complete 12/28/2021 16:56:34 12/28/2021 17:10:52 NPO Request 12/28/2021 16:56:34 Pending Labs Complete 12/28/2021 16:56:34 12/28/2021 18:10:39 Lab Complete 12/28/2021 16:56:34 12/28/2021 18:10:39 Urine Collect Complete 12/28/2021 16:56:34 12/28/2021 18:10:39 Patient Care Request 12/28/2021 16:56:34 X-Ray Complete 12/28/2021 16:56:34 12/28/2021 17:34:13 12/28/2021 17:48:43 RT Request 12/28/2021 16:56:34 CT Complete 12/28/2021 16:56:34 12/28/2021 16:58:03 12/28/2021 17:05:52 Pending Labs Complete 12/28/2021 16:58:23 12/28/2021 16:58:23 12/28/2021 16:58:24 Pending Labs Cancel 12/28/2021 17:06:14 12/28/2021 17:12:38 Lab Cancel 12/28/2021 17:06:14 12/28/2021 17:12:38 Pending Labs Complete 12/28/2021 17:10:18 12/28/2021 17:10:18 12/28/2021 17:23:01 Lab Complete 12/28/2021 17:10:18 12/28/2021 17:10:18 12/28/2021 17:23:01 Pending Labs Complete 12/28/2021 17:12:43 12/28/2021 17:12:43 12/28/2021 18:30:33 Lab Complete 12/28/2021 17:12:43 12/28/2021 17:12:43 12/28/2021 18:30:33 Reg Complete Request 12/28/2021 17:14:25 Pending Labs Complete 12/28/2021 17:16:07 12/28/2021 17:16:07 12/28/2021 17:16:15 Lab Complete 12/28/2021 17:16:07 12/28/2021 17:16:07 12/28/2021 17:16:15 Patient Care Request 12/28/2021 17:16:37 CT Complete 12/28/2021 17:16:37 12/28/2021 17:17:53 12/28/2021 17:35:40 Fall Risk Request 12/28/2021 17:17:24 RR Stroke Request 12/28/2021 17:35:18 Wet Read Complete 12/28/2021 17:48:43 12/28/2021 17:54:15 12/28/2021 17:54:15 Pending Labs Complete 12/28/2021 18:08:33 12/28/2021 18:08:33 12/28/2021 18:08:34 Patient Care Request 12/28/2021 18:33:24 Transfer Complete 12/28/2021 18:33:24 12/28/2021 20:07:55 12/28/2021 20:07:55 Meds Admin Complete 12/28/2021 18:34:06 12/28/2021 18:52:44 Discharge Complete 12/28/2021 20:07:55 12/28/2021 20:07:55 12/28/2021 20:07:55 ADDRESS: [id number] [id number] PHYS DOC NOTES: MEDICAL INFORMATION: Prescriptions Given: PATIENT EDUCATION INFORMATION: Instructions: Follow up: DIAGNOSIS: Central retinal artery occlusion, right eye; Stroke Normal [facility] ED Note-Physicianon 12-29-19 ED Note-Physician Basic Information Time Seen: Jayden Riley DO 12/28/2021 16:55 Chief Complaint pt c/o vision completely gone in right eye that happened this morning at 9am. pt denies any other symptoms. was sent over by dr. [place]. History of Present Illness 81 male presents emergency department with concerns for the possibility of stroke. Patient was sent by his billet assembler who was concerned after he diagnosed him today with a central retinal artery occlusion. Patient had loss of vision that started around 0 900 this morning his last known well was just prior to that. Patient states that he almost completely lost vision in his right eye he can only see lights or dark colors but basely cannot see anything from that side. He denies any headache no pain in his eyes no pain in his chest abdomen or any other symptoms. Patient denies any numbness or weakness to the upper or lower extremities. He was able to see the billet assembler who sent the patient here for concerns for the possibility of stroke and did request stroke work-up as well as sed rate and CRP testing to be performed. Patient is not on any blood thinners. He denies any history of strokes previously. No other aggravating or relieving factors no other associated symptoms no other prior treatments or complaints. Family: Reviewed and noncontributory Social: lives at home Review of systems negative unless otherwise specified in the HPI. Physical Exam Vitals & Measurements T: 36.5 ?C(Oral) HR: 83(Peripheral) RR: 16 BP: 189/87 SpO2: 97% HT: 178.0 cm HT: 178 cm WT: 67.0 kg WT: 67 kg BMI: 21.15 General: The patient appears well and in no apparent distress. Patient is resting comfortably on cart. Skin: Warm, dry, no pallor noted. Head: Normocephalic, atraumatic Neck: No JVD Eye: PERRLA, EOMI ENT: Moist mucus membranes Cardiovascular: Regular rate normal peripheral perfusion Respiratory: No respiratory distress no accessory muscle use no obvious audible wheezing Chest Wall: no deformity Musculoskeletal: normal ROM, no deformity, no swelling GI: Soft no obvious distention. No rebound or rigidity. No guarding. No tenderness. Neurological: A&O moves all extremities equal strength and symmetry Psychiatric: Cooperative and appropriate Procedure Patient is not a tPA candidate given that his symptoms began outside of the 4-1/2-hour window and stroke scale score is 2 for visual loss. Medical Decision Making Work-up in the ER has been reviewed and noted. Initial CT scan read by the radiologist as negative. Labs benign. CT angiogram does reveal some possible positive findings. Therefore I did use the telemetry cart stroke and consulted Dr. Pires [facility]. He did review the imaging studies and did recommend transfer as well as aspirin and Plavix to be given here. Patient and family are agreeable with this plan will be discharged therefore higher level stroke care. Critical care time 35 minutes exclusive from separate billable procedures Assessment/Plan Central retinal artery occlusion, right eye (H34.11: Central retinal artery occlusion, right eye) Stroke (I63.9: Cerebral infarction, unspecified) Orders: aspirin, 324 mg = 4 tab(s), Tab-Chew, Oral, Once, Stop date 12/28/21 18:33:00 EDT, STAT, Start date 12/28/21 18:33:00 EDT, 12/28/21 18:33:00 EDT clopidogrel, 300 mg = 4 tab(s), Tab, Oral, Once, Stop date 12/28/21 18:33:00 EDT, STAT, Start date 12/28/21 18:33:00 EDT, 12/28/21 18:33:00 EDT Automated Diff Basic Metabolic Panel C-Reactive Protein CBC w/ Auto Diff Carbon Stroke Scale Communication Order Physician to Nursing Continuous Pulse Oximetry CT Head or Brain w/o Contrast CTA Head CTA Neck CVA/TIA Inclusion/Exclusion Criteria ECG 12 Lead Adult ED Cardiac Monitoring eGFR Extra SST Tube NIH Stroke Scale Oxygen Therapy PT & PTT Routine Capillary Glucose POC Saline Lock Insert Sedimentation Rate Automated Stroke Quality Measures Transfer Patient Troponin 0 Hr. UA With Cult Reflex Vital Signs XR Chest Single View Disposition Plan Discharge Prescription List Prescriptions No active prescription medications Follow-up No qualifying data available Problem List/Past Medical History Ongoing No qualifying data Historical No qualifying data Medications Inpatient No active inpatient medications Home No active home medications Allergies No Known Medication Allergies Social History Alcohol - Low Risk, 12/28/2021 Substance Abuse - Denies Substance Abuse, 12/28/2021 Tobacco - Denies Tobacco Use, 12/28/2021 Former smoker, quit more than 30 days ago Tobacco Use:., 12/28/2021 Lab Results WBC: 6.1 E9/L (12/28/21 17:05:00) RBC: 4.4 E12/L (12/28/21 17:05:00) HGB: 13.9 gm/dL (12/28/21 17:05:00) Hct: 40.2 % (12/28/21 17:05:00) MCV: 90.4 fL (12/28/21 17:05:00) MCH: 31.2 pg (12/28/21 17:05:00) MCHC: 34.5 gm/dL (12/28/21 17:05:00) RDW: 14.2 % (12/28/21 17:05:00) Platelet: 264 E9/L (12/28/21 17:05:00 (more content not included)... Normal [facility] Comment on above: Result Comment: Elec tronically Signed By: Jayden Riley DO\.br\Date and Time Signed: 12/28/21 18:34 EDT ED Patient Education Noteon 12-28-2021 ED Patient Education Note Normal [facility] ED Patient Summaryon 022 ED Patient Summary (Inserted Image. Yue ble to display) [address] [address] Patient Discharge Instructions Person Information Name: MIKE MATHEW Age: 81 Years Arrival Date: 12/28/2021 16:51:11 Discharge Diagnosis: Central retinal artery occlusion, right eye; Stroke Primary Care Physician: PAUL ESQUEDA MD Provider Information Primary Provider: Jayden Riley DO Advanced Fastener Sewing Machine Operator:None The exam and treatment you received in the Emergency Department were for an urgent problem and are not intended as complete care. It is important that you follow up with a doctor, nurse practitioner, or physician?s carpenter assistant for ongoing care. If your symptoms become worse or you do not improve as expected and you are unable to reach your usual health care provider, you should return to the Emergency Department. We are available 24 hours a day. MIKE MATHEW has been given the following list of patient education materials, prescriptions and follow-up instructions: Follow-up Instructions: In the event that this physician does not participate in your insurance network, please consult with your insurance company to find a nearby participating provider. Patient Education Materials: A MESSAGE TO ALL PATIENTS REGARDING OPIOIDS PRESCRIPTION OPIOIDS: WHAT YOU NEED TO KNOW Prescription opioids can be used to help relieve gbrjttla-io-dpjbpf pain and are often prescribed following a surgery or injury, or for certain health conditions. These medications can be an important part of the treatment but also come with serious risks. It is important to work with your healthcare provider to make sure you are getting the safest, most effective care. WHAT ARE THE RISKS AND SIDE EFFECTS OF OPIOID USE? Prescription opioids carry serious risks of addiction and overdose, especially with prolonged use. An opioid overdose, often marked by slowed breathing, can cause sudden . The use of prescription opioids can have a number of side effects as well, even when taken as directed: ? Tolerance?meaning you might need to take more of the medication for the same pain relief ? Physical dependence?meaning you have symptoms of withdrawal when a medication is stopped ? Increased sensitivity to pain ? Constipation ? Nausea, vomiting, and dry mouth ? Sleepiness and dizziness ? Confusion ? Depression ? Low levels of testosterone that can result in lower sex drive, energy, and strength ? Itching and sweating RISKS ARE GREATER WITH: ? History of drug misuse, substance use disorder, or overdose ? Mental health conditions (such as depression or anxiety) ? Sleep apnea ? Older age (65 years and older) ? Avoid alcohol while taking prescription opioids. Also, unless specifically advised by your health care provider, medications to avoid include: ? Benzodiazepines (such as Xanax or Valium) ? Muscle relaxants (such as Soma or Flexeril) ? Hypnotics (such as Ambien or Lunesta) ? Other prescription opioids KNOW YOUR OPTIONS Talk to your health care provider about ways to manage your pain that don?t involve prescription opioids. Some of these options may actually work better and have fewer risks and side effects. Options may include: ? Pain relievers such as acetaminophen, ibuprofen, and naproxen ? Some medication that are also used for depression or seizures ? Physical therapy and exercise ? Cognitive behavioral therapy, a psychological, goal-directed approach, in which patients learn how to modify physical, behavioral, and emotional triggers of pain and stress. IF YOU ARE PRESCRIBED OPIOIDS FOR PAIN: ? Never take opioids in greater amounts or more often than prescribed. ? Follow up with your primary health care provider. o Work together to create a plan on how to manage your pain. o Talk about ways to help manage your pain that don?t involve prescription opioids. o Talk about any and all concerns and side effects. ? Help prevent misuse and abuse o Never sell or share prescription opioids. o Never use another person?s prescription opioids. ? Store prescription opioids in a secure place and out of reach of others (this may include visitors, children, friends, and family). ? Safely dispose of unused prescription opioids: Find your community drug take-back program or your pharmacy mail-back program, or flush them down the toilet, following guidance from the Food and Drug Administration (www.fda.gov/Drugs/Resou rcesForYou). ? Visit www.cdc.gov/drugoverdose to learn about the risks of opioids abuse and overdose. ? If you believe you may be struggling with addiction, tell your health resident care coordinator and ask for guidance or call [facility] National Helpline at 7-719-148-KCWC. d Source: [place] Department of Health and Human Services/Center for Disease Control & Prevention [facility] Medications Given: Medication (more content not included)... Normal [facility] PT & PTTon 12-28-2021 aPTT Coag (PPP) [Time] 34.0 second(s) Normal 25.1-36.5 [facility] Comment on above: Result Comment: Hepa rin therapeutic range (represented by Anti-Factor Xa activity of 0.2 - 0.4 U/mL) corresponds to PTT of 56.6 - 109.0 sec. Performed By: #### 2 [id number], [id number], [id number], [id number], 85759772, 3408241, 8309994, [id number] ####[facility] [address] [place] [address] INR Coag (PPP) [Relative time] 1.0 {INR} Invalid Interpretation Code [facility] Comment on above: Result Comment: INR results are specifically intended to assess patients stabilized on long-term Anticoagulation therapy suggested INR?s ?Less Intensive Anticoagulation? 2.0 ? 3.0 Conventional Range 3.0 ? 4.5 Performed By: #### 2 [id number], 5258519, 46074926, [id number], 11524438, 5973751, 0096241, [id number] ####[facility] [address] [place] [address] PT Coag (PPP) [Time] 11.9 second(s) Normal 10.2-12.9 [facility] Comment on above: Performed By: #### 2 183336, 3223839, 36308820, 05222924, 67758430, 9756382, 0744756, 69081501 ####[facility] [address] [place] [address] Pre-Arrival Noteon 2 Pre-Arrival Note Pre-Arrival Summary Name: mike mathew, Current Date: 12/28/2021 16:55:47 EDT Gender: Date of : Age: 82 Pre-Arrival Type: EMS ETA: 12/28/2021 17:13:00 EDT Primary Care Physician: Presenting Problem: PARK MAINTENANCE TECHNICIAN, 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 PARK MAINTENANCE TECHNICIAN occl of the right side. Do CRP and SED Rate Pre-Hospital Report: Treatment in Route: Response to Treatment: Misc. Issues: Normal [facility] RAD - Preliminary Cat Scan R eporton 12-28-2021 RAD - Preliminary Cat Scan Report [id number] :127 Normal [facility] Sed Rate Automatedon 022 Sed Rate Automated 19 mm/hr Normal 0-19 [facility] Comment on above: Performed By: #### 2 401169, 4472241, 81134067, 39971320, 29506405, 9811568, 7977920, 68423675 ####[facility] [address] [place] [address] Troponin 0 Hr.on 12-28-2021 Troponin I.cardiac [Mass/Vol] 28.70 pg/mL Normal 15.90-38.40 [facility] Comment on above: Result Comment: The 95% CI (Confidence Interval) PPV (Positive Predictive Value) for myocardial infarction in females is 38 pg/mL, in males 51 pg/mL. The results should be used in conjunction with clinical conditions of myocardial infarction. (Access High Sensitivity Troponin I Instructions For Use, Roberto [place], February 2018) Performed By: #### 2 093857, 8940803, 31667894, 72147175, 64293625, 2370116, 5574253, 94316541 ####[facility] [address] [place] [address] UA With Cult Reflexon 2021 Bilirubin Ql (U) Negative Normal Negative [facility] Comment on above: Performed By: #### 1 [id number] ####[facility] [address] [place] [address] Clarity (U) CLEAR Normal Clear [facility] Comment on above: Performed By: #### 1 [id number] ####[facility] [address] [place] [address] Color (U) YELLOW Normal Yellow [facility] Comment on above: Performed By: #### 1 [id number] ####[address] [address] Epithelial cells.squamous LM.HPF (Urine sed) [#/Area] 0-2 Normal 0-2 [facility] Comment on above: Performed By: #### 1 [id number] ####[address] [address] Glucose Test strip (U) [Mass/Vol] Negative Normal Negative [facility] Comment on above: Performed By: #### 1 [id number] ####[address] [address] Hemoglobin Ql (U) Negative Normal Negative [facility] Comment on above: Performed By: #### 1 [id number] ####[address] [address] Ketones (U) [Mass/Vol] Negative Normal Negative [facility] Comment on above: Performed By: #### 1 [id number] ####[address] [address] [place].plasma/Lit hium.RBC (Bld) [Mass ratio] 0-3 Normal 0-3 [facility] Comment on above: Performed By: #### 1 [id number] ####[address] [address] Nitrite Ql (U) Negative Normal Negative [facility] Comment on above: Performed By: #### 1 [id number] ####[address] [address] pH (U) 7.0 [pH] Invalid Interpretation Code 5.0-9.0 [facility] Comment on above: Performed By: #### 1 [id number] ####[address] [address] Protein (U) [Mass/Vol] Negative Normal Negative [facility] Comment on above: Performed By: #### 1 1655370 ####[address] [address] Specific gravity (U) [Rel density] 1.010 Invalid Interpretation Code 1.005-1.030 [facility] Comment on above: Performed By: #### 1 [id number] ####[facility] [address] [place] [address] Type of Urine collection method Clean Catch Normal [facility] Comment on above: Performed By: #### 1 [id number] ####[facility] [address] [place] [address] Urobilinogen Qn (U) 0.2 {Emily'U}/dL Normal 0.0-1.0 [facility] Comment on above: Performed By: #### 1 4560017 ####[facility] [address] [place] [address] WBC Auto Ql (U) Negative Normal Negative [facility] Comment on above: Performed By: #### 1 [id number] ####[facility] [address] [place] [address] WBC LM.HPF (Urine sed) [#/Area] 0-5 Normal 0-5 [facility] Comment on above: Performed By: #### 1 [id number] ####[facility] [address] [place] [address] eGFRon 12-28-2021 GFR/1.73 sq M.predicted among blacks MDRD (S/P/Bld) [Vol rate/Area] mL/min/{1.73_m2} Normal >=59 [facility] Comment on above: Order Comment: Order added by Discern Expert. Result Comment: eGFR is race adjusted. AA=. Performed By: #### 2 154413, 0764557, 79429962, 63397504, 01190697, 4012945, 4490022, 44083641 ####[facility] [address] [place] [address] GFR/1.73 sq M.predicted among non-blacks MDRD (S/P/Bld) [Vol rate/Area] mL/min/{1.73_m2} Normal >=59 [facility] Comment on above: Order Comment: Order added by Discern Expert. Result Comment: Student Affairs Vice President sonal kidney disease could be indicated at eGFR's of less than 60 mL/min/1.73m2. Kidney failure is indicated at less than 15 mL/min/1.73m2. Performed By: #### 2 151150, 4178713, 36160397, 00355903, 13043314, 1529816, 4816474, 28850411 ####[facility] [address] [place] [address] CBC AUTO DIFFon 10-21-2020 BASO # 0.1 103/ul Normal 0.0-0.1 [facility] Comment on above: Performed By: #### C BC #### [facility] [address] [place], [place] [address] Glenn Kassidy Basophils/100 WBC (Bld) 1.1 % Normal 0.2-2.0 [facility] Comment on above: Performed By: #### C BC #### [facility] [address] [place], [place] [address] Glenn Kassidy EO # 0.4 103/ul Normal 0.0-0.7 [facility] Comment on above: Performed By: #### C BC #### [facility] [address] [place], [place] [id number] Glenn Kassidy Eosinophils/100 WBC (Bld) 6.9 % Normal 0.9-7.0 [facility] Comment on above: Performed By: #### C BC #### [facility] [address] [place], [place] [id number] Glenn Kassidy Erythrocyte distribution width (RBC) [Ratio] 13.6 % Normal 11.0-15.0 [facility] Comment on above: Performed By: #### C BC #### [facility] [address] [place], [place] [id number] Glenn Kassidy Hematocrit (Bld) [Volume fraction] 45.3 % Normal 42.0-54.0 [facility] Comment on above: Performed By: #### C BC #### [facility] [address] [place], [place] [id number] Glenn Kassidy Hemoglobin (Bld) [Mass/Vol] 14.6 g/dL Normal 14.0-18.0 [facility] Comment on above: Performed By: #### C BC #### [facility] [address] [id number] Glenncristina Torresen IG # 0.03 10e3/ul Normal 0.00-0.03 [facility] Comment on above: Performed By: #### C BC #### [facility] [address] [address] Glenn Kassidy IG % 0.5 % Normal 0.0-0.5 [facility] Comment on above: Performed By: #### C BC #### [facility] [address] [place] [address] Glenn Kassidy LYMPH # 1.7 103/ul Normal 1.2-3.8 [facility] Comment on above: Performed By: #### C BC #### [facility] [address] [place] [address] Glenn Kassidy Lymphocytes/100 WBC (Bld) 26.8 % Normal 20.5-60.0 [facility] Comment on above: Performed By: #### C BC #### [facility] [address] [place], [place] [id number] Glenncristina Yi MANUAL DIFF REQ NO Normal [facility] Comment on above: Performed By: #### C BC #### [facility] [address] [place], [place] [address] Glenn Kassidy MCH (RBC) [Entitic mass] 30.4 pg Normal 25.9-34.0 [facility] Comment on above: Performed By: #### C BC #### [facility] [address] [place], [place] [address] Glenn Kassidy MCHC (RBC) [Mass/Vol] 32.2 g/dL Normal 29.9-35.[address] [facility] Comment on above: Performed By: #### C BC #### [facility] [address] [place], [place] [address] Glenn Kassidy MCV (RBC) [Entitic vol] 94.4 fL Critically high 80.0-94.0 [facility] Comment on above: Performed By: #### C BC #### [facility] [address], [place] [address] Glenn Kassidy MONO # 0.5 103/ul Normal 0.3-0.[address] [facility] Comment on above: Performed By: #### C BC #### [facility] [address] [id number] Glenn Kassidy Monocytes/100 WBC (Bld) 7.5 % Normal 1.7-12.[address] [facility] Comment on above: Performed By: #### C BC #### [facility] [address] [place] [address] Glenn Kassidy NEUT # 3.6 103/ul Normal 1.4-6.[address] [facility] Comment on above: Performed By: #### C BC #### [facility] [address] [place], [place] [address] Glenn Kassidy Neutrophils/100 WBC (Bld) 57.2 % Normal 43.0-75.[address] [facility] Comment on above: Performed By: #### C BC #### [facility] [address] [place], [place] [address] Glenn Kassidy Platelet mean volume (Bld) [Entitic vol] 10.2 fL Normal 9.5-13.[address] [facility] Comment on above: Performed By: #### C BC #### [facility] [address] [place], [place] [address] Glenn Kassidy PLT 278 103/ul Normal 150-[address] [facility] Comment on above: Performed By: #### C BC #### [facility] [address] [place], [place] [address] Glenn Kassidy RBC 4.80 106/ul Normal 4.70-6.[address] [facility] Comment on above: Performed By: #### C BC #### [facility] [address] [place], [place] [address] Glenn Kassidy WBC 6.2 103/ul Normal 4.0-11.[address] [facility] Comment on above: Performed By: #### C BC #### [facility] [address] [place], [place] [address] Glenn Kassidy LIPID PROFILEon 10-21-2020 CHOL-HDL RATIO NORM SEE BELOW Normal [facility] Comment on above: Result Comment: 3.3 - 4.4 LOW RISK 4.4 - 7.1 AVERAGE RISK 7.1 - 11.0 MODERATE RISK >11.0 HIGH RISK Performed By: #### A ST, ALT, PSASC, BMP, LIPID #### [facility] [address] [id number] Glenn Kassidy Cholesterol [Mass/Vol] 174 mg/dL Normal <=[address] [facility] Comment on above: Performed By: #### A ST, ALT, PSASC, BMP, LIPID #### [facility] [address] [id number] Glenn Kassidy Cholesterol in HDL [Mass/Vol] 72 mg/dL Normal [facility] Comment on above: Performed By: #### A ST, ALT, PSASC, BMP, LIPID #### [facility] [address] [id number] Glenn Kassidy Cholesterol in LDL [Mass/Vol] 87.4 mg/dL Normal [facility] Comment on above: Performed By: #### A ST, ALT, PSASC, BMP, LIPID #### [facility] [address] [id number] Glenn Kassidy Cholesterol.total/ Cholesterol in HDL [Mass ratio] 2.4 {ratio} Normal [facility] Comment on above: Performed By: #### A ST, ALT, PSASC, BMP, LIPID #### [facility] [address] [id number] Glenn Kassidy HDL NORMAL > or = 60 mg/dl - LO W CARDIOVASCULAR RISK <40 mg/dl - HIGH CARDIOVASCULAR RISK Normal [facility] Comment on above: Performed By: #### A ST, ALT, PSASC, BMP, LIPID #### [facility] [address] [id number] Glenn Kassidy LDL CALC NORMAL SEE BELOW Normal [facility] Comment on above: Result Comment: <100 mg/dl OPTIMAL 100 - 129 mg/dl NEAR OR ABOVE OPTIMAL 130 - 159 mg/dl BORDERLINE HIGH 160 - 189 mg/dl HIGH >190 mg/dl VERY HIGH Performed By: #### A ST, ALT, PSASC, BMP, LIPID #### [facility] [address] [id number] Glenn Kassidy Triglyceride [Mass/Vol] 73 mg/dL Normal <=150 [facility] Comment on above: Performed By: #### A ST, ALT, PSASC, BMP, LIPID #### [facility] [address] [id number] Glenn Kassidy VLDL CALC 14.6 mg/dL Normal [facility] Comment on above: Performed By: #### A ST, ALT, PSASC, BMP, LIPID #### [facility] [address] [id number] Glenn Torresen PROF CHEM 8 (BAS METB)on Anion gap [Moles/Vol] 10.7 mmol/L Normal [facility] Comment on above: Performed By: #### A ST, ALT, PSASC, BMP, LIPID #### [facility] [address] [address] Glenn Kassidy Calcium [Mass/Vol] 9.5 mg/dL Normal 8.4-10.2 [facility] Comment on above: Performed By: #### A ST, ALT, PSASC, BMP, LIPID #### [facility] [address] [address] Glenn Kassidy Chloride [Moles/Vol] 108 mmol/L Critically high 98-[address] [facility] Comment on above: Performed By: #### A ST, ALT, PSASC, BMP, LIPID #### [facility] [address] [address] Glenn Kassidy CO2 [Moles/Vol] 28.7 mmol/L Normal 22.0-30.0 [facility] Comment on above: Performed By: #### A ST, ALT, PSASC, BMP, LIPID #### [facility] [address] [address] Glenn Kassidy Creatinine [Mass/Vol] 0.99 mg/dL Normal 0.66-1.25 [facility] Comment on above: Performed By: #### A ST, ALT, PSASC, BMP, LIPID #### [facility] [address], [place] [address] Glenn Kassidy EGFR-AF [place]IAN >60 Normal >=60 [facility] Comment on above: Performed By: #### A ST, ALT, PSASC, BMP, LIPID #### [facility] [address] [phone] Glenn Kassidy EGFR-NON AF [place]IAN >60 Normal >=[address] [facility] Comment on above: Performed By: #### A ST, ALT, PSASC, BMP, LIPID #### [facility] [address] [id number] Glenn Kassidy Glucose [Mass/Vol] 106 mg/dL Normal 74-106 [facility] Comment on above: Performed By: #### A ST, ALT, PSASC, BMP, LIPID #### [facility] [address] [place] [address] Glenn Kassidy Potassium [Moles/Vol] 4.4 mmol/L Normal 3.4-5.0 [facility] Comment on above: Performed By: #### A ST, ALT, PSASC, BMP, LIPID #### [facility] [address] [place] [address] Glenn Kassidy Sodium [Moles/Vol] 143 mmol/L Normal 137-145 [facility] Comment on above: Performed By: #### A ST, ALT, PSASC, BMP, LIPID #### [facility] [address] [address] Glenn Kassidy Urea nitrogen [Mass/Vol] 22.0 mg/dL Critically high 9.0-20.0 [facility] Comment on above: Performed By: #### A ST, ALT, PSASC, BMP, LIPID #### [facility] [address] [place], [place] [address] Glenn Kassidy Urea nitrogen/Creatinin e [Mass ratio] 22.2 mg/mg Normal [facility] Comment on above: Performed By: #### A ST, ALT, PSASC, BMP, LIPID #### [facility] [address] [place] [address] Glenn Kassidy SGOTon 10-21-2020 AST [Catalytic activity/Vol] 19 U/L Normal 17-59 [facility] Comment on above: Performed By: #### A ST, ALT, PSASC, BMP, LIPID #### [facility] [address], [place] [address] Glenn Villegas 10-21-2020 ALT [Catalytic activity/Vol] 23 U/L Normal 21-72 [facility] Comment on above: Performed By: #### A ST, ALT, PSASC, BMP, LIPID #### [facility] [address], [place] [address] Glenn Yi Complete Pulmonary Functiono n 08-21-2018 Complete Pulmonary Function [facility] [place] [address] [place] [address] Pulmonary Function Signed Patient: Mike Mathew MR#: [id number] : 1940 Acct:[id number] Age/Sex: 77 / M ADM Date: 08/18/18 Loc: RT Room: Type: [facility] Attending Dr: London Bland MD Ordering Provider: London Bland MD, [facility] Date of Service: 08/18/18 Accession #: Copies to: MD London Jordan MD, [facility] HISTORY: This is a 77-year-old, 70 inch tall, 176 pound male, reformed smoker, referred by Dr. Bland with a diagnosis of high risk long-term medication usage and paroxysmal atrial fibrillation. The patient had appropriate appearance of the flow volume loop which decreased the terminal expiratory flow. The duration of exhalation was adequate. Overall, these appeared to be technically adequate studies. SPIROMETRY: The FEV1 to forced vital capacity ratio is reduced at 59% with a low normal forced vital capacity of 3.72 liters or 88% predicted with mild reduction in FEV1 to 2.21 liters or 73% predicted. The BFE99-99% is markedly reduced at 0.77 liters per second or 35% predicted. LUNG VOLUMES: Lung volumes done by plethysmography indicate a normal total lung capacity of 7.14 liters, 100% predicted. Vital capacity is low normal at 3.72 liters or 88% predicted, while inspiratory capacity is normal at 2.63 liters or 90% predicted. Residual volume is mildly increased at 3.42 liters, or 123% predicted with a residual volume to total lung capacity ratio which is high normal at 48%. DIFFUSION CAPACITY: Single breath diffusion capacity is mildly reduced at 17.7 mL/min/mmHg, which is 71% predicted and is low normal after adjustment for alveolar volume at 89% predicted. SUMMARY: These technically adequate pulmonary function studies revealed evidence of mild obstruction without clear evidence of restriction though with a suggestion of [id number] air trapping appreciated. Diffusion capacity is mildly reduced, but normal when adjusted for alveolar volume. When compared to prior studies utilizing similar equipment of 05/04/2018, it appears that the expiratory flows are generally improved. The total lung capacity is actually improved by 27%. The diffusion capacity is stable to minimally improved. Overall, there is no clear evidence to suggest a trend of declining diffusion capacity nor pulmonary function on the basis of these studies. Clinical correlation and continued close clinical surveillance are recommended. Transcribed By: EDUAR 08/21/18 1950 Dictated By: Paulo Pena MD 08/21/18 1230 Signed By: 08/22/18 0756 [facility] Aspartate Amino Transferaseo n 08-18-2018 AST enzyme act/vol 27 U/L Normal 10 [facility] Comment on above: Order Comment: Call if K result is <3.5 or >5.0 Performed By: #### T HYROID SC, AST, CREAT, BUN, LYTES #### [facility] [address] Blood Urea Nitrogenon 2018 Urea nitrogen mass conc 26 mg/dL High -23 [facility] Comment on above: Order Comment: Call if K result is <3.5 or >5.0 Performed By: #### T HYROID SC, AST, CREAT, BUN, LYTES #### [facility] [address] [id number] [facility] Creatinineon 08-18-2018 Creatinine mass conc 57 mg/dL [facility] Comment on above: Order Comment: Call if K result is <3.5 or >5.0 Performed By: #### T HYROID SC, AST, CREAT, BUN, LYTES #### [address] Creatinine mass conc 1.23 mg/dL Normal 0.64-1.27 [facility] Comment on above: Order Comment: Call if K result is <3.5 or >5.0 Performed By: #### T HYROID SC, AST, CREAT, BUN, LYTES #### [address] Creatinine mass conc mg/dL Normal [facility] Comment on above: Order Comment: Call if K result is <3.5 or >5.0 Result Comment: GFR estimated reference range: According to KDOQI guidelines, <60 ml/min/1.73m2 is sufficient to diagnose a patient with chronic kidney disease. Performed By: #### T HYROID SC, AST, CREAT, BUN, LYTES #### [address] Electrolyteson 08-18-2018 Chloride molar conc 99 mmol/L Normal 95-114 [facility] Comment on above: Order Comment: Call if K result is <3.5 or >5.0 Performed By: #### T HYROID SC, AST, CREAT, BUN, LYTES #### [address] CO2 molar conc 26.4 mmol/L Normal 22.0-30.0 [facility] Comment on above: Order Comment: Call if K result is <3.5 or >5.0 Performed By: #### T HYROID SC, AST, CREAT, BUN, LYTES #### [address] Potassium molar conc 4.9 mmol/L Normal 3.5-5.1 [facility] Comment on above: Order Comment: Call if K result is <3.5 or >5.0 Performed By: #### T HYROID SC, AST, CREAT, BUN, LYTES #### [address] Sodium molar conc 135 mmol/L Low 136-146 [facility] Comment on above: Order Comment: Call if K result is <3.5 or >5.0 Performed By: #### T HYROID SC, AST, CREAT, BUN, LYTES #### [address] THYROID SCREENon 08-18-2018 T4 free mass conc 1.26 ng/dL High 0.61-1.12 [facility] Comment on above: Order Comment: Call if K result is <3.5 or >5.0 Performed By: #### T HYROID SC, AST, CREAT, BUN, LYTES #### [address] Thyrotropin Qn 1.72 u[iU]/mL Normal 0.45-5.33 [facility] Comment on above: Order Comment: Call if K result is <3.5 or >5.0 Result Comment: PERF ORMED BY: [place] [address] PATHOLOGIST SOLUTION DEVELOPER AL FANG M.D. Performed By: #### T HYROID SC, AST, CREAT, BUN, LYTES #### [address] CNOVon 03-08-2018 CNOV Office Visit (RADTSA) Taylor MATHEW ([id number]) 1940 MDate Time Provider Department03/08/18 9:15 AM Shayne ZAMBRANO During your visit today, we recorded the following information about you: Temperature Pulse Respiration Blood pressure 98.1 degrees 50/minute 18/minute 124/42 Weight 88 kgEstefany Rodriguez, RN, RN 03/08/2018 9:24 AM THO Monroe MD 03/09/2018 2:18 PM SignedRadiation Oncology - Follow Up NotePATIENT NAME: Mike Rdz : History of prostate cancerINTERVAL HISTORY: The patient is in today for a follow-up examination withhistory of prostate cancer with prior radiation to a dose of 7560 cGy completed04/05/07. Overall doing well.PSA HISTORY:PSADate Value03/13/2015 0.40 ng/mL03/13/2014 0.88 PSA. (no units)Date Value03/07/2018 0.4208 0.7208 0.55 ALLERGIES: ALLERGIESNo Known AllergiesMEDICATIONS:alb uterol (PROVENTIL) 2.5 mg /3 mL (0.083 %) nebulizer solution inhale thecontents of 1 ampule every 4 hours as neededamiodarone (PACERONE) 200 mg tablet Take 200 mg by mouth once daily.aspirin, enteric coated (ASPIRIN, ENTERIC COATED) 81 mg EC tablet Take 81 mg bymouth once daily.ELIQUIS 5 mg tab(s) Take 5 mg by mouth twice daily.atorvastatin (LIPITOR) 40 mg tablet Take 40 mg by mouth once daily.metoprolol tartrate, short acting, (LOPRESSOR) 25 mg tablet Take 25 mg by mouthtwice daily.irbesartan (AVAPRO) 75 mg tablet Take 75 mg by mouth once daily.ANORO ELLIPTA 62.5-25 mcg/actuation inhaler INHALE 1 PUFF BY MOUTH ONCE DAILYipratropium (ATROVENT) 0.02 % nebulizer solution inhale the contents of 1ampule four times daily, as neededfurosemide (LASIX) 20 mg tablet Take 20 mg by mouth twice daily.brimonidine (ALPHAGAN P) 0.15 % ophthalmic solution INSTILL 1 DROP IN THE LEFTEYE EVERY 12 HOURS DIRECTEDallopurinol (ZYLOPRIM) 300 mg tabletQVAR 40 mcg/actuation inhaler Inhale 1 Puff as instructed twice daily.meloxicam (MOBIC) 7.5 mg tabletLATANOPROST 0.005 % ophthalmic solution once daily.LISINOPRIL 20 mg tablet 20 mg once daily.PERTINENT REVIEW OF SYSTEMS:Hematuria: noneDysuria: noneIncontinence: noneUrgency: noneCatheter use: noneMedications to aid urination: n- Total AUA Score:8Bowel movement frequency: 1-3/dayBowel movement quality: normalBlood per rectum: nonePHYSICAL EXAM:BP (!) 124/42 Pulse (!) 50 Temp 36.7 ?C (98.1 ?F) Resp 18 Wt 88 kg(194 lb) SpO2 95%General Appearance: Well appearing, alert, in no acute distress, well-hydrated,well nourished..Skin: Skin color, texture, turgor normal, no suspicious rashes or lesions.Abdomen: Normal abdominal exam, Abdomen soft, non-tender. Bowel sounds normal.No masses, organomegaly.Genitalia: Normal.Rectal: normal exam.Lymph Nodes: No cervical lymphadenopathy, No supraclavicular lymphadenopathy,No axillary lymphadenopathy. and No inguinal lymphadenopathy..ASSESSM ENT/PLAN: Prostate cancer with prior definitive radiation.Patient overall doing well without evidence of recurrence or late radiationproblems.Plan to see him back in one year with PSA.Signed by: Shayne Zambrano MD Referring Provider: Shayne ZAMBRANO [[id number]]Allergies As of Date: 03/08/2018(No Known Allergies)Date Reviewed: 03/08/2018Reviewed by: Estefany (Taylor) TAYLOR Rodriguez - Fully AssessedReason for Visit: Prostate Cancer [590]Primary Visit Diagnosis:Personal history of malignant neoplasm of prostate [Z85.46]Order(s):PSA/PRO STSPECAG DIAG [SQPSA] Order #: [id number] FUTUREPrescriptions as of 03/08/2018 Sig: ALBUTEROL SULFATE 2.5 MG/3 ML* inhale the contents of 1 ampu* AMIODARONE 200 MG TABLET Take 200 mg by mouth once brijesh* ASPIRIN 81 MG TABLET,DELAYED * Take 81 mg by mouth once rashida* ELIQUIS 5 MG TABLET Take 5 mg by mouth twice rashida* ATORVASTATIN 40 MG TABLET Take 40 mg by mouth once rashida* METOPROLOL TARTRATE 25 MG TAB* Take 25 mg by mouth twice brijesh* IRBESARTAN 75 MG TABLET Take 75 mg by mouth once rashida* ANORO ELLIPTA 62.5 MCG-25 MCG* INHALE 1 PUFF BY MOUTH ONCE D* IPRATROPIUM BROMIDE 0.02 % SO* inhale the contents of 1 ampu* FUROSEMIDE 20 MG TABLET Take 20 mg by mouth twice brijesh* BRIMONIDINE 0.15 % EYE DROPS INSTILL 1 DROP IN THE LEFT EY* ALLOPURINOL 300 MG TABLET QVAR 40 MCG/ACTUATION METERED* Inhale 1 Puff as instructed t* MELOXICAM 7.5 MG TABLET LATANOPROST 0.005 % EYE DROPS once daily. LISINOPRIL 20 MG TABLET 20 mg once daily.Problem List As Of Date 03/08/2018 Noted Resolved Personal history of malignant neoplasm of prost*INVALID FOR*Visit Notes:>> Estefany (Taylor) TAYLOR Rodriguez TueMar 08, 2018 9:08 AM Status: Rafael 8Ahua Rodriguez RNDisposition: Return in about 1 year (around 03/08/2019).Follow-up and Disposition History RecordedEncounter Number: [id number] Status:Closed by Shayne ZAMBRANO MD on 03/09/18 Normal [facility] PROGRESSon 03-08-2018 Protein mass conc HNO ID: [id number]: Shayne Díazervice: (none)Author Type: PhysicianType: Progress NotesFiled: 03/09/2018 2:18 PMNote Text:Radiation Oncology - Follow Up NotePATIENT NAME: Mike MathewPATIENT : History of prostate cancerINTERVAL HISTORY: The patient is in today for a follow-up examination withhistory of prostate cancer with prior radiation to a dose of 7560 cGycompleted 04/05/07. Overall doing well.PSA HISTORY:PSADate Value03/13/2015 0.40 ng/mL03/13/2014 0.88 PSA. (no units)Date Value03/07/2018 0.4208 0.7208 0.55 ALLERGIES: ALLERGIESNo Known AllergiesMEDICATIONS:alb uterol (PROVENTIL) 2.5 mg /3 mL (0.083 %) nebulizer solution inhale thecontents of 1 ampule every 4 hours as neededamiodarone (PACERONE) 200 mg tablet Take 200 mg by mouth once daily.aspirin, enteric coated (ASPIRIN, ENTERIC COATED) 81 mg EC tablet Take 81mg by mouth once daily.ELIQUIS 5 mg tab(s) Take 5 mg by mouth twice daily.atorvastatin (LIPITOR) 40 mg tablet Take 40 mg by mouth once daily.metoprolol tartrate, short acting, (LOPRESSOR) 25 mg tablet Take 25 mg bymouth twice daily.irbesartan (AVAPRO) 75 mg tablet Take 75 mg by mouth once daily.ANORO ELLIPTA 62.5-25 mcg/actuation inhaler INHALE 1 PUFF BY MOUTH ONCEDAILYipratropium (ATROVENT) 0.02 % nebulizer solution inhale the contents of 1ampule four times daily, as neededfurosemide (LASIX) 20 mg tablet Take 20 mg by mouth twice daily.brimonidine (ALPHAGAN P) 0.15 % ophthalmic solution INSTILL 1 DROP IN THELEFT EYE EVERY 12 HOURS DIRECTEDallopurinol (ZYLOPRIM) 300 mg tabletQVAR 40 mcg/actuation inhaler Inhale 1 Puff as instructed twice daily.meloxicam (MOBIC) 7.5 mg tabletLATANOPROST 0.005 % ophthalmic solution once daily.LISINOPRIL 20 mg tablet 20 mg once daily.PERTINENT REVIEW OF SYSTEMS:Hematuria: noneDysuria: noneIncontinence: noneUrgency: noneCatheter use: noneMedications to aid urination: n- Total AUA Score:8Bowel movement frequency: 1-3/dayBowel movement quality: normalBlood per rectum: nonePHYSICAL EXAM:BP (!) 124/42 Pulse (!) 50 Temp 36.7 ?C (98.1 ?F) Resp 18 Wt88 kg (194 lb) SpO2 95%General Appearance: Well appearing, alert, in no acute distress,well-hydrated, well nourished..Skin: Skin color, texture, turgor normal, no suspicious rashes or lesions.Abdomen: Normal abdominal exam, Abdomen soft, non-tender. Bowel soundsnormal. No masses, organomegaly.Genitalia: Normal.Rectal: normal exam.Lymph Nodes: No cervical lymphadenopathy, No supraclavicularlymphaden opathy, No axillary lymphadenopathy. and No inguinallymphadenopathy. .ASSESSMENT/PLAN: Prostate cancer with prior definitive radiation.Patient overall doing well without evidence of recurrence or lateradiation problems.Plan to see him back in one year with PSA.Signed by: Shayne Zambrano MD Normal [facility] Vital Signs Date Time Vital Sign Value Performing Clinician Faci lity 06-15-2023 12:55-0500 Diastolic blood pressure 84 mm[Hg] Poncho Rojo MD Work Phone: [facility] 06-15-2023 12:55-0500 Systolic blood pressure 134 mm[Hg] Poncho Rojo MD Work Phone: [facility] 06-15-2023 12:45-0500 Body height 180.3 cm Poncho Rojo MD Work Phone: [facility] 06-15-2023 12:45-0500 Body mass index (BMI) [Ratio] 21.62 kg/m2 Poncho Rojo MD Work Phone: [facility] 06-15-2023 12:45-0500 Body weight 70.31 kg Poncho Rojo MD Work Phone: [facility] 06-15-2023 12:45-0500 Heart rate 59 /min Poncho Rojo MD Work Phone: [facility] Encounters Encounter Date Encounter Type Care Provider Facility Start: 06-15-2023 End: [facility] Start: 06-15-2023 End: 06-15-2023 Office consultation new/estab patient 60 min Poncho Rojo MD Work Phone: [facility] Comment on above: Nonrheumatic aortic (valve) stenosis (Primary Dx); S/P coronary artery bypass graft x 3; Multiple vessel coronary artery disease; Mixed hyperlipidemia; Abnormal cardiovascular stress test; Mitral valve disease; Mild pulmonary hypertension (CMS/HCC); BMI 21.0-21.9, adult; Shortness of breath; Chronic obstructive pulmonary disease, unspecified COPD type (CMS/HCC); Former smoker Start: 10-21-2020 End: 10-22-[address] PAUL ESQUEDA Facility: Start: 08-18-2018 End: 08-18-2018 Patient encounter procedure [place] Facility:[facility] Start: 03-08-2018 End: 03-09-2018 Patient encounter G DORINA ZAMBRANO [facility] Start: 01-18-2018 Patient encounter [place] Fac ility:[id number] Start: 01-18-2018 Patient encounter Facil ity:[id number] Procedures Date Procedure Procedure Detail Performing Clinician Start: 06-15-2023 ECG 12-LEAD PONCHO CASAREZ Start: 06-15-2023 History of coronary artery bypass grafting S/P coronary artery bypass graft x 3 Poncho Rojo MD Work Phone: Start: 06-15-2023 Ecg routine ecg w/le ast 12 lds w/i&r Poncho Rojo MD Work Phone: Start: 10-21-[address] PAUL HENLEY Comment on above: Performed By: #### A ST, ALT, PSASC, BMP, LIPID #### [facility] [address] [address] Glenn Torresen Plan of Treatment Date Care Activity Detail Author Start: 12-23-2023 End: 12-23-2023 Patient encounter procedure 12/23/2023 11:10 AM EDT Office Visit [facility] [address] [address] Poncho Rojo MD [address] [facility] [address] [place] [address] ([id number]) [facility] Start: 03-11-2023 Influenza vaccination Influenza Vaccine (#1) [facility] Start: 12-28-1991 Zoster Vaccines (1 of 2) Zoster Vaccines (1 of 2) [facility] Start: 12-28-1963 DTaP/Tdap/Td Vaccines (1 - Tdap) DTaP/Tdap/Td Vaccines (1 - Tdap) [facility] Start: 12-28-1959 Diabetes mellitus screening Diabetes Screening [facility] Start: 12-28-1947 Pneumococcal Vaccine: 65+ Years (1 - PCV) Pneumococcal Vaccine: 65+ Years (1 - PCV) [facility] Start: 06-28-1942 COVID-19 Vaccine (#1) COVID-19 Vaccine (#1) [facility] Start: 1940 Lipid panel Lipid Panel [facility] Start: 1940 Medicare Annual Wellness Visit Medicare Annual Wellness Visit (AWV) [facility] Payers Date Payer Category Payer Self-pay 2010 Unknown [employer] [id number] 2010-Present [place] [address] [id number] 2010 Unknown [id number] 2006 Medicare MEDICARE MEDICAR E PART A AND B [id number] 2006-Present [address] [place] [address] [id number] 1959 Medicare [id number] 1959 Unknown [id number] 1941 Unknown [id number] 1941 Unknown [id number] Medicare [id number] Unknown [id number] Social History Date Type Detail Facility Start: 06-15-2023 Tobacco smoking stat us NHIS Ex-smoker [facility] Work Phone: History of tobacco use [facility]: History of tobacco use Cigarette Smoker [facility] Work Phone: Start: 06-15-2023 Tobacco use and exposure Smokeless tobacco non-user [facility] Work Phone: Start: 06-15-2023 Alcohol intake Current drinke r of alcohol (finding) [facility] Work Phone: Start: 06-15-2023 History of Social function [facility] Work Phone: Start: 06-15-2023 [facility] Work Phone: Start: 06-15-2023 Alcohol Comment social [facility] Work Phone: Start: 1940 Sex Assigned At Not on file [facility] Work Phone: Start: 06-05-2023 End: 06-15-2023 Exposure to SARS-CoV-2 (event) Not sure [facility] History of Present illness Narrative 06-15-2023 Poncho Rojo MD - 06/15/2023 12:50 PM EST Note Date & Type Note Facility 06-15-2023 History of Present illness Narrative Subjective Mike Mathew is a 82 y.o. male here for cardiovascular evaluation for coronary artery disease and abnormal stress test Chief Complaint Coronary Artery Disease Patient is here for cardiovascular evaluation for coronary artery disease and recently borderline abnormal stress test. He is a very pleasant 82-year-old white male who has been seen by our group in the past for coronary artery disease. He underwent three-vessel bypass surgery with TURCIOS to the LAD, saphenous vein graft to OM and saphenous vein graft to the right coronary artery back in 2018. The patient had history of COPD and prior tobacco use. History of hyperlipidemia. He recently was seen by his family physician and because of shortness of breath he was referred for a stress test. His Lexiscan EKG component showed abnormal ECG response however his nuclear images were without evidence of myocardial ischemia but questionable LV systolic dysfunction of 42. Echocardiogram showed normal LV systolic function mild aortic stenosis mild mild mitral stenosis, mild to moderate mitral regurgitation and mild degree of pulmonary hypertension. The patient denies any complaint of chest pain, palpitation, lightheadedness, dizziness or syncope. He reports he is reasonably active. His recent laboratory data showed his LDL is around 100 Assessment 1. Coronary artery disease with prior three-vessel bypass surgery with TURCIOS to the LAD, saphenous vein graft to OM and saphenous vein graft to the RCA. Patient denies angina. Recent stress test showed no evidence of myocardial ischemia by perfusion images 2. Borderline abnormal Lexiscan myocardial fusion study with abnormal ECG response to exercise with no evidence of ischemia by perfusion images. This finding of no significant clinical value 3. Mild aortic stenosis 4. Mild mitral stenosis and mild to moderate mitral regurgitation per recent echo 5. Mild pulmonary hypertension 6. Hyperlipidemia suboptimally controlled with LDL of 100 7. Mild shortness of breath due to prior tobacco use and COPD 8. BMI 21 Plan 1. I recommended to the patient to start losartan 25 mg daily 2. I reviewed with the patient results of his recent lab work, echocardiogram, and a stress test and reassured him in view of no evidence of myocardial ischemia by perfusion images 3. We discussed risk factor modification 4. I recommended follow-up in 6 months Family history Coronary artery disease Past medical history Coronary artery disease, hyperlipidemia, previous tobacco use and COPD Coronary Artery Disease Symptoms include shortness of breath. Review of Systems Respiratory: Positive for shortness of breath. All other systems reviewed and are negative. Visit Vitals BP 134/84 (BP Location: Right arm, Patient Position: Sitting) Pulse 59 Ht 1.803 m (5' 11 ) Wt 70.3 kg (155 lb) BMI 21.62 kg/m Smoking Status Former BSA 1.88 m EKG done in office today Objective Physical Exam Constitutional: Appearance: Normal appearance. He is normal weight. HENT: Nose: Nose normal. Neck: Vascular: No carotid bruit. Cardiovascular: Rate and Rhythm: Normal rate. Pulses: Normal pulses. Heart sounds: Normal heart sounds. Pulmonary: Effort: Pulmonary effort is normal. Abdominal: General: Bowel sounds are normal. Palpations: Abdomen is soft. Genitourinary: Rectum: Normal. Musculoskeletal: General: Normal range of motion. Cervical back: Normal range of motion. Right lower leg: No edema. Left lower leg: No edema. Skin: General: Skin is warm and dry. Neurological: General: No focal deficit present. Mental Status: He is alert. Psychiatric: Mood and Affect: Mood normal. Behavior: Behavior normal. Thought Content: Thought content normal. Judgment: Judgment normal. Current Medications Current Outpatient Medications: aspirin 81 mg EC tablet, Take 1 tablet (81 mg) by mouth once daily., Disp: , Rfl: atorvastatin (Lipitor) 40 mg tablet, Take 1 tablet (40 mg) by mouth once daily at bedtime., Disp: , Rfl: losartan (Cozaar) 25 mg tablet, Take 1 tablet (25 mg) by mouth once daily., Disp: 30 tablet, Rfl: 11 Assessment/Plan 1. Nonrheumatic aortic (valve) stenosis 2. S/P coronary artery bypass graft x 3 Follow Up In Cardiology losartan (Cozaar) 25 mg tablet 3. Multiple vessel coronary artery disease Follow Up In Cardiology 4. Mixed hyperlipidemia Follow Up In Cardiology losartan (Cozaar) 25 mg tablet 5. Abnormal cardiovascular stress test ECG 12 Lead 6. Mitral valve disease 7. Mild pulmonary hypertension (CMS/HCC) 8. BMI 21.0-21.9, adult 9. Shortness of breath 10. Chronic obstructive pulmonary disease, unspecified COPD type (CMS/HCC) 11. Former smoker documented in this encounter [facility] Work Phone: Instructions 06-15-2023 Patient Instructions Note Date & Type Note Facility 06-15-2023 Instructions Sima Moncada LPN - 06/15/2023 12:50 PM EST Please bring all medicines, vitamins, and herbal supplements with you when you come to the office. Prescriptions will not be filled unless you are compliant with your follow up appointments or have a follow up appointment scheduled as per instruction of your physician. Refills should be requested at the time of your visit. 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 Mixed hyperlipidemia Abnormal cardiovascular stress test Other nonspecific abnormal cardiovascular system function study Mitral valve disease Other and unspecified mitral valve diseases Mild pulmonary hypertension (CMS/HCC) Other chronic pulmonary heart diseases BMI 21.0-21.9, adult Shortness of breath Chronic obstructive pulmonary disease, unspecified COPD type (CMS/HCC) Former smoker Personal history of tobacco use, presenting hazards to health documented in this encounter [facility] Work Phone: Summary Purpose Family History No Family History Records FoundNo Family History Records FoundNo Family History Records FoundNo Family History Records FoundNo Family History Records FoundNo Family History Records FoundNo Family History Records Found Advance Directives No Advanced Directives Records FoundNo Advanced Directives Records FoundNo Advanced Directives Records FoundNo Advanced Directives Records FoundNo Advanced Directives Records FoundNo Advanced Directives Records FoundNo Advanced Directives Records Found Reason for Referral Specialty Diagnoses / Procedures Referred By Peggy boogie Referred To Contact Diagnoses Abnormal cardiovascular stress test Procedures ECG 12 Lead Poncho Rojo MD [address] [place] [address] [address], [address] [address] Referral ID Status Reason Start Date Expiration Date V isits Requested Visits Authorized [id number] Pending Review 06/15/2023 06/14/2024 1 1 Specialty Diagnoses / Procedures Referred By Contac t Referred To Contact Cardiology Diagnoses S/P coronary artery bypass 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 [address] [place] [id number] Poncho Rojo MD [address] [facility] [address] [place] [id number] Referral ID Status Reason Start Date Expiration Date V isits Requested Visits Authorized [id number] Authorized 06/15/2023 06/14/2024 1 1 Additional Source Comments (unrecognized sect ion and content) No Status Records FoundNo Status Records FoundNo Status Records FoundNo Status Records FoundNo Status Records FoundNo Status Records FoundNo Status Records Found INFORMATION SOURCE (unrecogn ized section and content) DATE CREATED AUTHOR 01/20/2018 [facility] DATE CREATED AUTHOR AUTHOR'S ORGANIZ ATION 01/24/2018 [facility] DATE CREATED AUTHOR AUTHOR'S ORGANIZ ATION 03/12/2018 [facility] DATE CREATED AUTHOR AUTHOR'S ORGANIZ ATION 08/30/2018 [facility] DATE CREATED AUTHOR AUTHOR'S ORGANIZ ATION 11/01/2020 [facility] DATE CREATED AUTHOR AUTHOR'S ORGANIZ ATION 01/06/2022 [facility] DATE CREATED AUTHOR AUTHOR'S ORGANIZ ATION 06/18/2023 [facility] Ambulatory Reason for Visit (unrecogniz ed section and content) Reason Comments Coronary Artery Disease New Patient Care Teams (unrecognized sec tion and content) Enterprise Analyst Relationship Specialty Start Date End Date Paul Esqueda MD [address] [place] [address] PCP - General Family Medicine 06/15/23 FOR RECORDS PERTAINING TO PATIENTS WHO ARE OR HAVE BEEN ENROLLED IN A CHEMICAL DEPENDENCY/SUBSTANCEABUSE PROGRAM, SOME INFORMATION MAY BE OMITTED. This clinical summary was aggregated from multiple sources. Caution should be exercised in using it in the provision of clinical care. This summary normalizes information from multiple sources, and as a consequence, information in this document may materially change the coding, format and clinical context of patient data. In addition, data may be omitted in some cases. CLINICAL DECISIONS SHOULD BE BASED ON THE PRIMARY CLINICAL RECORDS. [employer] [facility]. provides no warranty or guarantee of the accuracy or completeness of information in this document.
[2023-07-09 13:53] LABS: Glucometer 126 mg/dL (74-106)
--- NOTE | 2023-07-09 14:00 | PC.NURSE ---
FSBS result of 126. Patient is resting with eyes closed, easily awakens and answers questions appropriately. Patient is able to folloow
--- NOTE | 2023-07-09 14:03 | PC.NURSE ---
Patient awake on cot at this time. at bedside. Patient able to answer questions appropriately and following commands appropriately. Patient able to move all arms and legs, left sided hand grasp slightly weaker than left.
[2023-07-09 14:09] LABS: Basophils Percent Auto 0.3 % (0.2-2.0); Eosinophils Absolute Auto 0.1 10^3/uL (0.0-0.7); Hematocrit 43.6 % (42.0-54.0); Hemoglobin 13.5 g/dL (14.0-18.0); Immature Granulocytes Abs Auto 0.03 10^3/uL (0.00-0.03); Immature Granulocytes Pct Auto 0.3 % (0.0-0.5); Lymphocytes Absolute Auto 1.2 10^3/uL (1.2-3.8); Lymphocytes Percent Auto 12.4 % (20.5-60.0); Mean Corpuscular Hemoglobin 30.2 pg (25.9-34.0); Mean Corpuscular Volume 97.5 fL (80.0-94.0); Mean Platelet Volume 9.4 fL (9.5-13.5); Monocytes Absolute Auto 0.9 10^3/uL (0.3-0.8); Monocytes Percent Auto 9.2 % (1.7-12.0); Neutrophils Absolute Auto 7.1 10^3/uL (1.4-6.5); Neutrophils Percent Auto 76.8 % (43.0-75.0); Platelet Count 239 10^3/uL (150-450); Red Blood Count 4.47 10^6/uL (4.70-6.10); Red Cell Distribution Width 14.7 % (11.0-15.0); White Blood Count 9.2 10^3/uL (4.0-11.0)
[2023-07-09 14:26] LABS: INR 1.25; Partial Thromboplastin Time 30.7 sec (22.3-36.2); Prothrombin Time 13.1 sec (9.0-11.6)
[2023-07-09 14:27] LABS: Alanine Aminotransferase 165 U/L (16-63); Albumin Globulin Ratio 0.8; Albumin Level 2.7 g/dL (3.4-5.0); Alkaline Phosphatase 84 U/L (46-116); Anion Gap 13.7; Aspartate Amino Transferase 94 U/L (15-37); BUN Creatinine Ratio 35.2; Bilirubin Total 0.7 mg/dL (0.2-1.0); Calcium 9.1 mg/dL (8.5-10.1); Carbon Dioxide 23.7 mmol/L (21.0-32.0); Chloride 95 mmol/L (98-107); Estimated GFR (African America 51 (>=60); Estimated GFR (Non-African Ame 42 (>=60); Globulin 3.2 g/dL; Glucose 130 mg/dL (74-106); Potassium 5.4 mmol/L (3.5-5.1); Sodium 127 mmol/L (136-145); Total Protein 5.9 g/dL (6.4-8.2)
[2023-07-09 14:38] LABS: Troponin I High Sensitivity 300.1 pg/mL (4.0-76.1)
--- NOTE | 2023-07-09 14:56 | CT_ITS ---
[address] [address] Patient Name: MIKE MONROY MRN: [id number] date: 1940 Sex: M Assigned Patient Location: ER Current Patient Location: Accession/Order Number: [id number] Exam Date: 07/09/2023 15:20 Report Date: 07/09/2023 16:15 At the request of: STEVE URBINA Procedure: CT angio neck CTA HEAD/NECK. HISTORY: stroke like COMPARISON: None. TECHNIQUE: CT angiogram of the head and neck obtained after administration of 75 mL of nonionic intravenous contrast material, Isovue-300. Multiplanar and volume rendered 3-D reformats were created. NASCET criteria was used for evaluation of luminal stenosis. 3-D vascular images were constructed on a separate workstation. FINDINGS: Somewhat limited evaluation due to motion and suboptimal opacification. THORACIC AORTA: Normal. There is a normal anatomy at the origin of the great vessels. RIGHT COMMON CAROTID ARTERY: Limited evaluation due to suboptimal opacification. RIGHT EXTERNAL CAROTID ARTERY: There is occlusion of the ECA. RIGHT INTERNAL CAROTID ARTERY: There is occlusion of the entire right ICA. LEFT COMMON CAROTID ARTERY: No significant stenosis. LEFT EXTERNAL CAROTID ARTERY: There is approximately 70% stenosis of the origin of the ECA. LEFT INTERNAL CAROTID ARTERY: There is approximately 70% stenosis of the proximal left ICA secondary to heavy calcified atherosclerotic plaque. RIGHT VERTEBRAL ARTERY: Limited evaluation due to suboptimal opacification. LEFT VERTEBRAL ARTERY: Limited evaluation due to suboptimal opacification. [place] OF RICE: There is occlusion of the intracranial right ICA. The bilateral intracranial, anterior cerebral arteries, middle cerebral arteries and anterior and posterior communicating arteries are normal. POSTERIOR INTRACRANIAL CIRCULATION: The basilar artery and posterior cerebral arteries are patent, without stenosis or occlusion. DURAL SINUSES: Patent. No intracranial aneurysm measuring least 2 mm identified. No intracranial AVM. LUNG APICES: There are bilateral pleural effusions. SOFT TISSUES: The prevertebral soft tissues are normal. No soft tissue inflammation. OSSEOUS STRUCTURES: No acute osseous abnormality throughout the imaged axial skeleton and skull base. CT/CT angio neck IMPRESSION: 1. Evaluation is somewhat limited due to suboptimal opacification and motion. 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 2. Approximately 70% stenosis of the proximal left ICA. 3. No high-grade stenosis or occlusion of the major intracranial arteries. 4. Limited evaluation of the vertebral arteries. 5. Bilateral pleural effusions. Electronically authenticated by: RIMMA LYNN Date: 07/09/2023 16:15
--- NOTE | 2023-07-09 14:56 | CT_ITS ---
[address] [address] Patient Name: MIKE MONROY MRN: [id number] date: 1940 Sex: M Assigned Patient Location: ER Current Patient Location: Accession/Order Number: [id number] Exam Date: 07/09/2023 15:20 Report Date: 07/09/2023 16:15 At the request of: STEVE URBINA Procedure: CT angio head CTA HEAD/NECK. HISTORY: stroke like COMPARISON: None. TECHNIQUE: CT angiogram of the head and neck obtained after administration of 75 mL of nonionic intravenous contrast material, Isovue-300. Multiplanar and volume rendered 3-D reformats were created. NASCET criteria was used for evaluation of luminal stenosis. 3-D vascular images were constructed on a separate workstation. FINDINGS: Somewhat limited evaluation due to motion and suboptimal opacification. THORACIC AORTA: Normal. There is a normal anatomy at the origin of the great vessels. RIGHT COMMON CAROTID ARTERY: Limited evaluation due to suboptimal opacification. RIGHT EXTERNAL CAROTID ARTERY: There is occlusion of the ECA. RIGHT INTERNAL CAROTID ARTERY: There is occlusion of the entire right ICA. LEFT COMMON CAROTID ARTERY: No significant stenosis. LEFT EXTERNAL CAROTID ARTERY: There is approximately 70% stenosis of the origin of the ECA. LEFT INTERNAL CAROTID ARTERY: There is approximately 70% stenosis of the proximal left ICA secondary to heavy calcified atherosclerotic plaque. RIGHT VERTEBRAL ARTERY: Limited evaluation due to suboptimal opacification. LEFT VERTEBRAL ARTERY: Limited evaluation due to suboptimal opacification. [place] OF RICE: There is occlusion of the intracranial right ICA. The bilateral intracranial, anterior cerebral arteries, middle cerebral arteries and anterior and posterior communicating arteries are normal. POSTERIOR INTRACRANIAL CIRCULATION: The basilar artery and posterior cerebral arteries are patent, without stenosis or occlusion. DURAL SINUSES: Patent. No intracranial aneurysm measuring least 2 mm identified. No intracranial AVM. LUNG APICES: There are bilateral pleural effusions. SOFT TISSUES: The prevertebral soft tissues are normal. No soft tissue inflammation. OSSEOUS STRUCTURES: No acute osseous abnormality throughout the imaged axial skeleton and skull base. CT/CT angio head IMPRESSION: 1. Evaluation is somewhat limited due to suboptimal opacification and motion. 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 2. Approximately 70% stenosis of the proximal left ICA. 3. No high-grade stenosis or occlusion of the major intracranial arteries. 4. Limited evaluation of the vertebral arteries. 5. Bilateral pleural effusions. Electronically authenticated by: RIMMA LYNN Date: 07/09/2023 16:15
[2023-07-09 15:33] LABS: PROCALCITONIN 0.16 ng/mL (0.00-0.50)
--- NOTE | 2023-07-09 16:35 | XR_ITS ---
The [address] [address] Patient Name: MIKE MONROY MRN: [id number] date: 1940 Sex: M Assigned Patient Location: ER Current Patient Location: ER Accession/Order Number: [id number] Exam Date: 07/09/2023 17:12 Report Date: 07/09/2023 18:05 At the request of: STEVE URBINA Procedure: XR chest 1V EXAM: XR chest 1V TECHNIQUE: Single AP view chest HISTORY: afib bilateral effusion COMPARISON: None. FINDINGS: The heart is enlarged. Mild blunting of the costophrenic angles with haziness in the lower lungs suggesting small effusions. Pulmonary venous congestion. Osseous structures are intact. XR/XR chest 1V IMPRESSION: Small bilateral pleural effusions and pulmonary venous congestion suggesting CHF and/or fluid overload. Electronically authenticated by: ASH DAVIS Date: 07/09/2023 18:05
[2023-07-09] MEDS: AMIODARONE IN DEXTROSE,ISO-OSM 150 MG/100 ML PIGGYBACK 600 MG IV (16:56)
[2023-07-09 17:05] LABS: Troponin I High Sensitivity 307.2 pg/mL (4.0-76.1)
[2023-07-09] MEDS: AMIODARONE IN DEXTROSE,ISO-OSM 360 MG/200 ML PLAST..BAG 33.333 MG IV (17:39)
--- NOTE | 2023-07-09 17:39 | ED.NEUROSD1 ---
HPI - Neuro Symptoms/Deficit General Chief Complaint: Neuro Symptoms/Deficit Stated Complaint: CVA SYMPTOMS Time Seen by Provider: 07/09/23 13:45 Source: family Mode of arrival: ambulance Limitations: altered mental status History of Present Illness HPI Narrative: She was brought to us by the and the son with a right-sided facial droop as well as left-sided weakness that started almost at 1230, when asked about symptoms the patient himself answer only yes and no questions, and he denies any pain the mentioned that at 1230 he had the right-sided facial droop when she was trying to talk to him. It is with reviewing the patient history apparently the mentioned that at 1130 when she went to medicinal plant [facility] the prescription apparently she met him at that time and he was normal before she left the house. The patient also has been complaining of generalized tiredness and weakness for the last few days but no left upper or lower extremity weakness like his presentation right now. Patient have a history of old stroke that caused him some deficiency in his left eye vision. Related Data Allergies Allergy/AdvReac Type Severity Reaction Status Date / Time No Known Drug Allergies Allergy Verified 07/09/23 13:52 Review of Systems ROS Status of ROS 10 or more systems reviewed and unremarkable except as noted in history and below [facility] Social History Smoking status: Former smoker Exam Narrative Exam Narrative: Nurses notes and vital signs reviewed and patient is not hypoxic. General: Well-appearing and in no apparent distress. Skin: Warm, dry, no pallor noted. No rash. Head: Normocephalic, atraumatic. Neck: Supple, non-tender. Eye: Pupils are equal, round and EOMI. No scleral icterus. Ears, Nose, Mouth, and Throat: TM are clear, no nasal mucosal hypertrophy. Oral mucosa is moist, no posterior oropharynx erythema, uvula is mid-line Cardiovascular: Regular Rate and Rhythm without murmur, gallop or rub. Respiratory: No accessory muscle use or respiratory distress. Lungs are clear to auscultation, no wheezing, rales or rhonchi Chest Wall: no tenderness Back: No midline thoracic or lumbar vertebral tenderness. No CVA tenderness Musculoskeletal: normal ROM, no calf or popliteal tenderness, no lower extremity edema/swelling GI: Abdomen is soft, non-distended. Normal bowel sounds. No masses appreciated. No tenderness to palpation. No rebound, guarding, or rigidity noted. Neurological: Upon presentation the patient is awake but he is having deviation of his vision to the right side with a left-sided upper and lower extremity complete weakness right upper and lower face weakness and facial drooping. The patient was only answering yes or no question and he was not able to elevate his left upper and lower extremity at all his NIH score upon presentation it was 15 Constitutional Vital Signs, click to edit/add: Last Vital Signs Temp 98.2 F 07/09/23 13:53 Pulse 148 H 07/09/23 13:53 Resp 20 07/09/23 13:53 BP 126/104 H 07/09/23 17:00 Pulse Ox 98 07/09/23 13:53 O2 Del Method Room Air 07/09/23 13:53 Course Vital Signs Vital signs: Vital Signs Blood Pressure 144/84 H 07/09/23 13:43 Temperature 98.2 F 07/09/23 13:53 Pulse Rate 148 H 07/09/23 13:53 Respiratory Rate 20 07/09/23 13:53 Blood Pressure 126/104 H 07/09/23 17:00 Pulse Oximetry 98 07/09/23 13:53 Oxygen Delivery Method Room Air 07/09/23 13:53 MDM - Neuro Symptoms/Deficit MDM Narrative Medical decision making narrative: Upon presentation the patient EKG showing that he is having A-fib with RVR with a heart rate of [address] elevation or depression. The patient have no history of A-fib with RVR he was rushed to the CAT scan with a CT stroke protocol started and the patient case was discussed with neurology at that time the patient last known well was at 11:30 AM and he is presenting to us at 1:40 PM and that put him at the time for tPA but by the time I presented to speak with the family but tPA the patient symptoms are completely resolved which is almost at 2:[address] of the head showed no acute pathology I spoke with Dr. Kwon in the [facility] lso accepted the patient to be transferred for atrial fibrillation managementAnd non-STEMI The patient case was discussed with Dr. 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 2. Approximately 70% stenosis of the proximal left ICA The patient case was accepted by Dr. Alegre to be admitted and transferred to [facility] The patient was accepted by [facility] but there was no bent available I did call [facility] and Dr.Steanhal HARRIS and Lisa avendanoopitalist, who accepted the patient to be transferred to the hospital Emergency Room to await his bed The patient was started on heparin drip on low-dose with no bolus as per cardiology service,A shunt also was started in metoprolol tartrate 25 mg twice a day. We will hold on aspirin and Plavix The patient on amiodarone drip right now after an amiodarone bolus. The patient is waiting transfer and I did speak with the and the son and explained the plan potassium repeated in pending awaiting result ----signed out to Dr Waggoner Lab Data Labs: Lab Results 07/09/23 07/09/23 07/09/23 Range/Units 13:52 14:01 16:35 WBC 9.2 (4.0-11.0) 10^3/uL RBC 4.47 L (4.70-6.10) 10^6/uL Hgb 13.5 L (14.0-18.0) g/dL Hct 43.6 (42.0-54.0) % MCV 97.5 H (80.0-94.0) fL MCH 30.2 (25.9-34.0) pg MCHC 31.0 (29.9-35.2) g/dL RDW 14.7 (11.0-15.0) % Plt Count 239 (150-450) 10^3/uL MPV 9.4 L (9.5-13.5) fL Neut % (Auto) 76.8 H (43.0-75.0) % Lymph % (Auto) 12.4 L (20.5-60.0) % [place] % (Auto) 9.2 (1.7-12.0) % Eos % (Auto) 1.0 (0.9-7.0) % Baso % (Auto) 0.3 (0.2-2.0) % Neut # (Auto) 7.1 H (1.4-6.5) 10^3/uL Lymph # (Auto) 1.2 (1.2-3.8) 10^3/uL [place] # (Auto) 0.9 H (0.3-0.8) 10^3/uL Eos # (Auto) 0.1 (0.0-0.7) 10^3/uL Baso # (Auto) 0.0 (0.0-0.1) 10^3/uL Abs Immat Gran (auto) 0.03 (0.00-0.03) 10^3/uL Imm/Tot Granulo (auto) 0.3 (0.0-0.5) % PT 13.1 H (9.0-11.6) sec INR 1.25 APTT 30.7 (22.3-36.2) sec Sodium 127 L (136-145) mmol/L Potassium 5.4 H (3.5-5.1) mmol/L Chloride 95 L (98-107) mmol/L Carbon Dioxide 23.7 (21.0-32.0) mmol/L Anion Gap 13.7 BUN 56.0 H (7.0-18.0) mg/dL Creatinine 1.59 H (0.70-1.30) mg/dL Est GFR ( Amer) 51 L (>=60) Est GFR (Non-Af Amer) 42 L (>=60) BUN/Creatinine Ratio 35.2 Glucose 130 H (74-106) mg/dL Calcium 9.1 (8.5-10.1) mg/dL Total Bilirubin 0.7 (0.2-1.0) mg/dL AST 94 H (15-37) U/L ALT 165 H (16-63) U/L Alkaline Phosphatase 84 (46-116) U/L Troponin I High Sens 300.1 H* 307.2 H* (4.0-76.1) pg/mL Total Protein 5.9 L (6.4-8.2) g/dL Albumin 2.7 L (3.4-5.0) g/dL Globulin 3.2 g/dL Albumin/Globulin Ratio 0.8 Procalcitonin 0.16 (0.00-0.50) ng/mL POC Glucose 126 H (74-106) mg/dL Discharge Plan Discharge Chief Complaint: Neuro Symptoms/Deficit Clinical Impression: Acute non-ST elevation myocardial infarction (NSTEMI), Atrial fibrillation with rapid ventricular response Cerebrovascular accident Qualifiers: CVA mechanism: other Qualified Code(s): I63.89 - Other cerebral infarction Transient cerebral ischemia Qualifiers: Transient cerebral ischemia type: other Qualified Code(s): G45.8 - Other transient cerebral ischemic attacks and related syndromes Patient Disposition: [facility] Time of Disposition Decision: 19:28 Discharge location: [facility] Condition: Fair
[2023-07-09] MEDS: HEPARIN SODIUM,PORCINE/D5W 25,000 UNIT/500 ML IV.SOLN 17.418 UNIT IV (20:02)
[2023-07-09] MEDS: METOPROLOL TARTRATE 25 MG TABLET PO (20:07)
[2023-07-09 20:27] LABS: Potassium 5.4 mmol/L (3.5-5.1)
--- NOTE | 2023-07-09 20:41 | PC.NURSE ---
[facility] arrives at this time for transport to [facility]. Report called to nurse [place] at [facility] ER.
== END 2023-07-09 20:49 | disposition short-term general hospital (02) ==
PROVIDERS: Emergency Provider Emergency Medicine; PCP Family Medicine
DX: I21.4 Non-ST elevation (NSTEMI) myocardial infarction (principal); I48.91 Unspecified atrial fibrillation; I63.9 Cerebral infarction, unspecified; Z86.73 Personal history of transient ischemic attack (TIA), and cerebral infarction without residual deficits; Z87.891 Personal history of nicotine dependence; I65.23 Occlusion and stenosis of bilateral carotid arteries
CPT/HCPCS: 36415; 70450; 70496; 70498; 71045; 80053; 84132; 84145; 84146; 84484; 85025; 85610; 85730; 93005; 96365; 96366; 96368; 96376; 99285; Q9966